=== PATIENT | male | born 1955 | race Caucasian/White ===

== ENCOUNTER → 2017-06-11 | Outpatient (CLI) | payer MEDICARE ==
[2017-06-11 11:14] LABS: CHCM 33.5; HCT 47.9 % (39.0-53.0); HDW 2.83; HGB 15.8 gm/dL (13.0-17.5); MCH 30.7 pg (25.0-35.0); MCV 93.1 fL (80.0-100.0); Mean Platelet Volume 7.5; RBC 5.14 m/uL (4.30-5.90); WBC 3.9 k/uL (3.8-10.6)
[2017-06-11 11:33] LABS: Anion Gap 11 mmol/L; Blood Urea Nitrogen 16 mg/dL (9-20); Carbon Dioxide 22 mmol/L (22-30); Chloride 107 mmol/L (98-107); Non-African American GFR(MDRD) >60 (>60 ml/min/1.73 sqM); Potassium 4.4 mmol/L (3.5-5.1); Sodium 140 mmol/L (137-145)
== END | disposition home or self-care (01) ==
LOC: LABPAT 10:39
PROVIDERS: ATTEND Internal Medicine Cardiovascular Disease
DX: Z01.812 Encounter for preprocedural laboratory examination (principal); R07.9 Chest pain, unspecified
CPT/HCPCS: 36415; 80051; 82565; 84520; 85027

== ENCOUNTER 2017-06-16 07:37 | Day surgery (SDC) | payer MEDICARE ==
[2017-06-11 10:11] VITALS: BMI 29.5
[~2017-06-16 07:37] MED LIST: ALPRAZolam 0.25 MG TAB PO PRN; ALPRAZolam 0.5 MG TAB PO PRN; ASPIRIN 325 MG TAB PO STA; ATORVASTATIN 80 MG TAB PO STA; NITROGLYCERIN SL TABS 0.4 MG TAB SUBLINGUAL PRN; SODIUM CHLORIDE 0.9% 1,000 ML in EMPTY BAG 1 BAG IV ONE
[2017-06-16] MEDS ORDERED: SODIUM CHLORIDE 0.9% 1,000 ML IV ONE (08:03)
[2017-06-16 08:22] LABS: INR 1.1 (<1.2); Prothrombin Time 10.7 sec (9.0-12.0)
[2017-06-16 08:27] VITALS: TEMP 98.1
[2017-06-16] MEDS ORDERED: MIDAZOLAM 2 MG/2 ML VIAL ONE (09:01)
[2017-06-16] MEDS ORDERED: LIDOCAINE 2% INJ 20 MG/ML (20 ML MDV) ONE (09:01)
[2017-06-16] MEDS ORDERED: fentaNYL (PF) 50 MCG/ML 2 ML AMP ONE (09:01)
[2017-06-16] MEDS ORDERED: LIDOCAINE 2% INJ 20 MG/ML SQ ONE (09:25)
[2017-06-16] MEDS ORDERED: MIDAZOLAM 2 MG/2 ML VIAL IV ONE (09:25)
[2017-06-16] MEDS ORDERED: IOHEXOL 350 MG/ML 125ML BOTTLE INJ ONE (09:37)
[2017-06-16] MEDS ORDERED: RX INFO: IV CONTRAST WAS GIVEN 1 EACH MISC MISCELLANE PRN (09:39)
[2017-06-16] MEDS ORDERED: SODIUM CHLORIDE 0.9% 1,000 ML IV SCH (09:45)
--- NOTE | 2017-06-16 10:04 | CC ---
CARDIAC CATHETERIZATION REPORT INDICATION: Chest pain with abnormal stress test. PROCEDURE NOTE: After obtaining informed consent, left heart catheterization and coronary angiogram are performed via the right femoral artery using standard Girish catheters. Patient tolerated the procedure well without any obvious immediate complications. A femoral angiogram was performed. An Angio-Seal was deployed for hemostasis. Total conscious sedation time was 15 minutes. FINDINGS: 1. HEMODYNAMICS: Left ventricular end-diastolic pressure is 12 to 14 mm. There is no significant gradient across the aortic valve. 2. LEFT VENTRICULOGRAM: Left ventriculogram was not performed. 3. ANGIOGRAPHIC DATA:. 4. LEFT MAIN CORONARY ARTERY: Left main coronary artery is a normal-sized vessel and is free of stenosis. It divides into left anterior descending coronary artery, ramus intermedius and circumflex coronary artery. LAD and its branches, circumflex coronary artery and its branches are free of significant stenosis. The ramus intermedius appears normal. 5. Right coronary artery is a large dominant vessel and is free of significant stenosis. CONCLUSION: 1. Normal coronary arteries. 2. Normal left ventricular end-diastolic pressure. Patient's chest discomfort is probably noncardiac in origin and the stress test is a false positive stress test. I reviewed angiographic data with the patient and advised him to resume the Coumadin that he is on for the history of DVT. MMODL / IJN: [id number] /
[2017-06-16 10:21] VITALS: RESP 16
[2017-06-16 14:29] VITALS: BP 123/93; PULSE 56
== END 2017-06-16 14:39 | disposition home or self-care (01) ==
LOC: CATHCVL 07:37
PROVIDERS: ATTEND Internal Medicine Cardiovascular Disease
DX: R07.2 Precordial pain (principal); R94.39 Abnormal result of other cardiovascular function study; I73.9 Peripheral vascular disease, unspecified; Z82.49 Family history of ischemic heart disease and other diseases of the circulatory system; I26.99 Other pulmonary embolism without acute cor pulmonale; Z79.01 Long term (current) use of anticoagulants; Z79.899 Other long term (current) drug therapy
CPT/HCPCS: 93458; 85610; C1760; C1894; C1769; J2001; J2250; Q9967

== ENCOUNTER → 2018-12-07 | Outpatient (CLI) | payer SELFPAY | END | disposition home or self-care (01) | LOC: LABPAT 16:39 | PROVIDERS: ATTEND Surgery | DX: Z01.818 Encounter for other preprocedural examination (principal) | CPT/HCPCS: 36415; 86850; 86900; 86901; 93005 ==

== ENCOUNTER → 2018-12-10 | Outpatient (CLI) | payer BC, MEDICARE ==
--- NOTE | 2018-12-10 19:26 | MR ---
EXAMINATION TYPE: MR lumbar spine wo/w con DATE OF EXAM: 12/10/2018 COMPARISON: None HISTORY: Sciatica / Lumbar fusion TECHNIQUE: Multiplanar, multisequence images of the lumbar spine were acquired utilizing 10 mL intravenous Gadav ist gadolinium contrast. There is extensive artifact due to patient's metallic hardware. Degenerative disc changes are present . There is a spinal curvature. IMPRESSION: Exam is markedly limited. There is postop change, degenerative disc disease, scoliosis.
== END | disposition home or self-care (01) ==
LOC: RADMRIMAIN 15:46
PROVIDERS: ATTEND Family Medicine
DX: M51.16 Intervertebral disc disorders with radiculopathy, lumbar region (principal); M41.86 Other forms of scoliosis, lumbar region; Z98.1 Arthrodesis status
CPT/HCPCS: 82565; 72158; 36415; A9585

== ENCOUNTER 2018-12-15 11:46 | Day surgery (SDC) | payer BC, MEDICARE ==
[2018-12-09 16:54] VITALS: BMI 29.7
[~2018-12-15 11:46] MED LIST changes: -ALPRAZolam 0.25 MG TAB PO PRN; -ALPRAZolam 0.5 MG TAB PO PRN; -ASPIRIN 325 MG TAB PO STA; -ATORVASTATIN 80 MG TAB PO STA; +HEPARIN SODIUM,PORCINE 5,000 UNIT/ML 1 ML VIAL SQ ONE; +HYDROmorphone 0.5 MG/0.5 ML SYRINGE IVP PRN; +LACTATED RINGERS 1,000 ML IV SCH; +LIDOCAINE 1% 20 ML VIAL (10MG/ML) FOR IV START INTRADERMA PRN; -NITROGLYCERIN SL TABS 0.4 MG TAB SUBLINGUAL PRN; -SODIUM CHLORIDE 0.9% 1,000 ML in EMPTY BAG 1 BAG IV ONE; +ceFAZolin IN SWFI 2 GM/20 ML SYRINGE IVP ONE
[2018-12-15] MEDS ORDERED: LACTATED RINGERS 1,000 ML IV ONE ×2 (12:00→13:57)
[2018-12-15] MEDS: ONDANSETRON 4 MG/2 ML VIAL IVP ONE ×2 (12:08→17:09)
[2018-12-15] MEDS ORDERED: DEXAMETHASONE SOD PHOS (MDV) 100 MG/10 ML VIAL IVP ONE (12:09)
--- NOTE | 2018-12-15 12:36 | P.GSHP ---
History of Present Illness H&P Date: 12/15/18 Chief Complaint: Incarcerated ventral hernia This a 63-year-old male who presents today for laparoscopic robotic-assisted repair of incarcerated ventral hernia. Patient developed a tender mass in the supraumbilical position. 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, PE x3-last time 3 yrs ago, chronic back pain History of Any Multi-Drug Resistant Organisms: None Reported Past Surgical History: Back Surgery, Hernia Repair, Orthopedic Surgery Additional Past Surgical History / Comment(s): cynthia ankles and rt knee surgery with hardware, neck fusion, back surgery with 4 titanium rods Past Anesthesia/Blood Transfusion Reactions: Previous Problems w/ Anesthesia, Motion Sickness Additional Past Anesthesia/Blood Transfusion Reaction / Comment(s): had problem once w/difficulty waking up but surgeries since than no problems Smoking Status: Never smoker - Past Family History Father Family Medical History: Cancer Additional Family Medical History / Comment(s): prostate Medications and Allergies Home Medications Medication Instructions Recorded Confirmed Type Apixaban [Eliquis] 2.5 mg PO BID 12/09/18 12/09/18 History Allergies Allergy/AdvReac Type Severity Reaction Status Date / Time No Known Allergies Allergy Verified 12/09/18 16:46 Surgical - Exam Vital Signs Temp Pulse Resp BP Pulse Ox 97.2 F L 84 18 200/92 95 12/15/18 12:00 12/15/18 12:00 12/15/18 12:00 12/15/18 12:00 12/15/18 12:00 - General well developed, well nourished, no distress - Eyes PERRL - ENT normal pinna - Neck no masses - Respiratory normal expansion - Cardiovascular Rhythm: regular - Abdomen Abdomen: soft, non tender (4 cm incarcerated ventral hernia located in the super umbilical position) Assessment and Plan Assessment: Incarcerated ventral hernia. We'll perform laparoscopic robotic-assisted repair.
[2018-12-15] MEDS ORDERED: MIDAZOLAM 2 MG/2 ML VIAL IVP ONE (12:45)
[2018-12-15] MEDS ORDERED: MIDAZOLAM 2 MG/2 ML VIAL ONE (13:02)
[2018-12-15] MEDS ORDERED: fentaNYL (PF) 50 MCG/ML 2 ML AMP ONE (13:02)
[2018-12-15] MEDS ORDERED: LIDOCAINE 2%-EPI 1:100,000 20 ML VIAL ONE (13:02)
[2018-12-15] MEDS ORDERED: PROPOFOL 10 MG/ML 20 ML VIAL IV ONE (13:02)
[2018-12-15] MEDS ORDERED: LIDOCAINE 1% INJ 10MG/ML (20 ML MDV) ONE (13:02)
[2018-12-15] MEDS ORDERED: ROCURONIUM BROMIDE 10 MG/ML 10 ML VIAL IV ONE (13:02)
[2018-12-15] MEDS ORDERED: MORPHINE SULFATE 10 MG/ML SYRINGE ONE (13:02)
[2018-12-15] MEDS ORDERED: ROPIVACAINE 5 MG/ML 30 ML VIAL ONE (13:02)
[2018-12-15] MEDS ORDERED: BUPIVACAIN-EPI 0.5%-1:200,000 30 ML VIAL SQ ONE ×2 (13:21→13:49)
--- NOTE | 2018-12-15 13:36 | P.ONQ ---
Anesthesiology Proc Note - PNB - Peripheral Nerve Block Performed Bilateral Rectus Abdominis Single Time Out Performed: Yes Procedure Start Time: 12:46 Procedure Stop Time: 12:51 Indication: Acute Post-Operative Pain, Requested by physician Sedation Type: Sedate with meaningful contact maintained Preparation: Sterile Prep Position: Supine Needle Size: 50mm (2") Needle Gauge: 21 Technique: Ultrasound (ropi .5% 15cc plus xylo 2% with epi 10cc each side) Blood Aspirated: No Pain Paresthesia on Injection Noted: No Resistance on Injection: Normal Events: Uneventful and Well Tolerated
[2018-12-15 14:15] VITALS: RESP 16; TEMP 97.7
--- NOTE | 2018-12-15 14:26 | P.OP ---
Date of Procedure: 12/15/18 Preoperative Diagnosis: Incarcerated ventral hernia Postoperative Diagnosis: Incarcerated ventral hernia Procedure(s) Performed: Endoscopic robotic-assisted repair of incarcerated ventral hernia Partial omentectomy Anesthesia: JACOB Surgeon: Ashish Alejandre Estimated Blood Loss (ml): 5 Pathology: other (Omentum) Condition: stable Disposition: PACU Description of Procedure: The patient was placed on the operating table in the supine position. He received general anesthesia. His abdomen was prepped and draped usual fashion. Using a 5 mm optical trocar under direct visualization the peritoneal cavity was entered in the left upper quadrant. The abdomen was then insufflated. The laparoscope was placed back into the perineal cavity. Next a 8 mm robotic trocar was placed in the left lower quadrant and a 12 mm robotic trocar was placed in the left lateral position. The original 5 mm trocar was exchanged for a 8 mm robotic trocar. The patient's placed in the left side up position. And the patient was undocked the robot. The ventral hernia was visualized. There was incarcerated omentum within the hernia. This was dissected using the hook cautery. The omentum was excised and sent to pathology. Using hook cautery the peritoneum over the ventral hernia w as excised. The fascial opening was repaired using 0V LOC suture. Next a piece of 11 cm round ventral light ST mesh was placed into the. Cavity and secured with 2 OV lock suture. The patient was undocked the robot. The needles were retrieved. The fascia of the 12 mm trocar site was closed with 0 Ethibond suture. Skin was closed interrupted 3-0 Monocryl suture. Dermabond dressings was applied. Patient top procedure well and was sent to recovery room stable condition.
[2018-12-15 16:28] VITALS: BP 143/98; PULSE 63
== END 2018-12-15 17:38 | disposition home or self-care (01) ==
LOC: OR 11:46
PROVIDERS: ATTEND Surgery
DX: K43.6 Other and unspecified ventral hernia with obstruction, without gangrene (principal); M19.90 Unspecified osteoarthritis, unspecified site; Z86.711 Personal history of pulmonary embolism; D68.2 Hereditary deficiency of other clotting factors; G60.0 Hereditary motor and sensory neuropathy; G89.29 Other chronic pain; M54.9 Dorsalgia, unspecified; Z79.01 Long term (current) use of anticoagulants
CPT/HCPCS: 49653; S2900; 36415; 64488; 86850; 86900; 86901; 88305; 93005

== ENCOUNTER 2018-12-18 21:43 | Inpatient (IN) | payer BC, MEDICARE ==
[2018-12-18] MEDS ORDERED: MORPHINE SULFATE 4 MG/ML SYRINGE IV STA (22:18)
[2018-12-18] MEDS ORDERED: SODIUM CHLORIDE 0.9% 500 ML 500 ML IV STA (22:18)
[2018-12-18] MEDS ORDERED: ONDANSETRON 4 MG/2 ML VIAL IVP STA (22:18)
[2018-12-18 22:52] LABS: Basophils % (A) 1 %; Eosinophils # (A) 0.2 k/uL (0-0.7); Eosinophils % (A) 3 %; HCT 51.5 % (39.0-53.0); HGB 17.4 gm/dL (13.0-17.5); Lymphocytes % (A) 13 %; MCH 30.4 pg (25.0-35.0); MCHC 33.7 g/dL (31.0-37.0); MCV 90.3 fL (80.0-100.0); Monocytes # (A) 0.5 k/uL (0-1.0); Monocytes % (A) 6 %; Neutrophils # (A) 6.1 k/uL (1.3-7.7); Neutrophils % (A) 77 %; Platelet Count 168 k/uL (150-450); RDW 13.4 % (11.5-15.5)
--- NOTE | 2018-12-18 22:57 | ED ---
General Adult HPI - General Source: patient, family, RN notes reviewed Mode of arrival: wheelchair Limitations: no limitations <Ramos May P - Last Filed: 12/18/18 23:41> <Carol Saldivar P - Last Filed: 12/19/18 21:38> - General Chief complaint: Abdominal Pain Stated complaint: Vomiting/abd pain Time Seen by Provider: 12/18/18 22:04 - History of Present Illness Initial comments: 63-year-old male with a past medical history of chronic back pain, Atxgyql-Shjcq-Qmkzf disease, PE presents to the emergency department for a chief complaint of abdominal pain x 1 day. Patient sates the pain is in the middle of his abdomen. Patient states the pain comes and goes, denies pain at this time. Patient does admit to one episode vomiting, admits to intermittent nausea. Patient did undergo a laparoscopic robotic-assisted repair of incarcerated ventral hernia [address] Alejandre and has not produced a bowel movement since that time. Patient denies producing gas. Does state he is burping more than normal. Does admit his abdomen feels more distended than normal. Denies fevers or chills.Patient has no other complaints at this time including shortness of breath, chest pain, headache, or visual changes. (Ramos May) - Related Data Home Medications Medication Instructions Recorded Confirmed Apixaban [Eliquis] 2.5 mg PO BID 12/09/18 12/18/18 Previous Rx's Medication Instructions Recorded Docusate [Colace] 100 mg PO BID #20 capsule 12/15/18 HYDROcodone/APAP 7.5-325MG [[place] 1 tab PO Q6HR PRN 3 Days #10 tab 12/15/18 7.5-325] Allergies Allergy/AdvReac Type Severity Reaction Status Date / Time No Known Allergies Allergy Verified 12/18/18 22:29 Review of Systems ROS Other: All systems not noted in ROS Statement are negative. <Ramos May P - Last Filed: 12/18/18 23:41> ROS Other: All systems not noted in ROS Statement are negative. <Carol Saldivar P - Last Filed: 12/19/18 21:38> ROS Statement: Those systems with pertinent positive or pertinent negative responses have been documented in the HPI. 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, PE x3-last time 3 yrs ago, chronic back pain History of Any Multi-Drug Resistant Organisms: None Reported Past Surgical History: Back Surgery, Hernia Repair, Orthopedic Surgery Additional Past Surgical History / Comment(s): cynthia ankles and rt knee surgery with hardware, neck fusion, back surgery with 4 titanium rods Past Anesthesia/Blood Transfusion Reactions: Previous Problems w/ Anesthesia, Motion Sickness Additional Past Anesthesia/Blood Transfusion Reaction / Comment(s): had problem once w/difficulty waking up but surgeries since than no problems Past Psychological History: No Psychological Hx Reported Smoking Status: Never smoker Past Alcohol Use History: None Reported Past Drug Use History: None Reported - Past Family History Father Family Medical History: Cancer Additional Family Medical History / Comment(s): prostate <Ramos May P - Last Filed: 12/18/18 23:41> - Past Family History Father Family Medical History: Cancer Additional Family Medical History / Comment(s): prostate Mother Family Medical History: Dementia Additional Family Medical History / Comment(s): still alive <Carol Saldivar P - Last Filed: 12/19/18 21:38> General Exam Limitations: no limitations General appearance: alert, in no apparent distress Head exam: Present: atraumatic Eye exam: Present: normal appearance, PERRL, EOMI. Absent: scleral icterus, conjunctival injection, periorbital swelling ENT exam: Present: normal exam, mucous membranes moist Neck exam: Present: normal inspection, full ROM. Absent: tenderness, meningismus, lymphadenopathy Respiratory exam: Present: normal lung sounds bilaterally. Absent: respiratory distress, wheezes, rales, rhonchi, stridor Cardiovascular Exam: Present: regular rate, normal rhythm, normal heart sounds. Absent: systolic murmur, diastolic murmur, rubs, gallop, clicks GI/Abdominal exam: Present: distended, tenderness (mid abdominal tednerness noted), hypoactive bowel sounds Neurological exam: Present: alert, oriented X3, CN II-XII intact Psychiatric exam: Present: normal affect, normal mood <Ramos May P - Last Filed: 12/18/18 23:41> Course Vital Signs 12/18/18 12/18/18 21:45 22:41 Temperature 98.1 F Pulse Rate 94 82 Respiratory 20 16 Rate Blood Pressure 163/115 136/105 O2 Sat by Pulse 96 Oximetry Medical Decision Making - Lab Data Result diagrams: 12/18/18 22:30 12/18/18 22:30 <Ramos May P - Last Filed: 12/18/18 23:41> - Lab Data Result diagrams: 12/18/18 22:30 12/18/18 22:30 <Carol Saldivar - Last Filed: 12/19/18 21:38> - Medical Decision Making 63-year-old male with a past medical history of Iuvcgpf-Ibexa-Wvpxz, PE, chronic back pain presents to the emergency department for abdominal pain postop day 4 from laparoscopic robotic-assisted repair of incarcerated ventral hernia performed by Dr. Alejandre. Patient has not had a bowel movement since that time. States he is not producing gas. Patient is burping more than normal and does have a distended abdomen. Had one episode of vomiting earlier today, denies nausea at this time. KUB is read as no acute findings however there is a large amount of gas and stool noted in the colon, consistent with ileus. Dr. Saldivar discussed this with Dr. Paul who is on-call for Dr. Alejandre at this time. Patient will be admitted for further management. (Ramos May) I personally saw and examined the patient. I reviewed and agree with the mid- level provider findings including all diagnostic interpretations and treatment plans as written unless otherwise stated. I discussed patient care with Dr. Putnam who is covering for Dr. Alejandre he agrees with plan for admission, IV fluid hydration and observation (Carol Saldivar) - Lab Data Lab Results 12/18/18 12/18/18 12/18/18 Range/Units 22:30 22:30 22:30 WBC 8.0 (3.8-10.6) k/uL RBC 5.70 (4.30-5.90) m/uL Hgb 17.4 (13.0-17.5) gm/dL Hct 51.5 (39.0-53.0) % MCV 90.3 (80.0-100.0) fL MCH 30.4 (25.0-35.0) pg MCHC 33.7 (31.0-37.0) g/dL RDW 13.4 (11.5-15.5) % Plt Count 168 (150-450) k/uL Neutrophils % 77 % Lymphocytes % 13 % Monocytes % 6 % Eosinophils % 3 % Basophils % 1 % Neutrophils # 6.1 (1.3-7.7) k/uL Lymphocytes # 1.0 (1.0-4.8) k/uL Monocytes # 0.5 (0-1.0) k/uL Eosinophils # 0.2 (0-0.7) k/uL Basophils # 0.0 (0-0.2) k/uL Sodium 137 (137-145) mmol/L Potassium 4.1 (3.5-5.1) mmol/L Chloride 102 (98-107) mmol/L Carbon Dioxide 25 (22-30) mmol/L Anion Gap 10 mmol/L BUN 15 (9-20) mg/dL Creatinine 0.53 L (0.66-1.25) mg/dL Est GFR (CKD-EPI)AfAm >90 (>60 ml/min/1.73 sqM) Est GFR (CKD-EPI)NonAf >90 (>60 ml/min/1.73 sqM) Glucose 115 H (74-99) mg/dL Plasma Lactic Acid Hai 1.3 (0.7-2.0) mmol/L Calcium 9.5 (8.4-10.2) mg/dL Total Bilirubin 0.9 (0.2-1.3) mg/dL AST 22 (17-59) U/L ALT 29 (21-72) U/L Alkaline Phosphatase 78 (38-126) U/L Total Protein 7.2 (6.3-8.2) g/dL Albumin 4.0 (3.5-5.0) g/dL Amylase 67 (30-110) U/L Lipase 63 (23-300) U/L Disposition Is patient prescribed a controlled substance at d/c from ED?: No Time of Disposition: 23:41 <Ramos May P - Last Filed: 12/18/18 23:41> <Carol Saldivar P - Last Filed: 12/19/18 21:38> Clinical Impression: Postoperative ileus Disposition: ADMITTED IP TO THIS HOSP Condition: Fair
--- NOTE | 2018-12-18 23:05 | XR ---
EXAM: XR Abdomen, 1 View CLINICAL HISTORY: ITS.REASON XR Reason: Pain TECHNIQUE: Frontal supine view of the abdomen/pelvis. COMPARISON: No relevant prior studies available. FINDINGS: Gastrointestinal tract: Large amount of gas and stool in the colon. Bones/joints: Unremarkable. IMPRESSION: No acute findings.
[2018-12-18 23:08] LABS: ALT 29 U/L (21-72); AST 22 U/L (17-59); Alkaline Phosphatase 78 U/L (38-126); Amylase 67 U/L (30-110); Anion Gap 10 mmol/L; Blood Urea Nitrogen 15 mg/dL (9-20); Calcium 9.5 mg/dL (8.4-10.2); Carbon Dioxide 25 mmol/L (22-30); Chloride 102 mmol/L (98-107); Glucose 115 mg/dL (74-99); Lipase 63 U/L (23-300); Potassium 4.1 mmol/L (3.5-5.1); Sodium 137 mmol/L (137-145); Total Bilirubin 0.9 mg/dL (0.2-1.3); Total Protein 7.2 g/dL (6.3-8.2)
[2018-12-18] MEDS ORDERED: NALOXONE 0.4 MG/ML 1 ML VIAL IV PRN (23:16)
[2018-12-18] MEDS: SODIUM CHLORIDE 0.9% 1,000 ML IV SCH (23:42)
[2018-12-19] MEDS ORDERED: ONDANSETRON 4 MG/2 ML VIAL IVP PRN (00:24)
[2018-12-19 02:48] LABS: Appearance,Urine Clear (Clear); Bilirubin,Urine Negative (Negative); Blood,Urine Negative (Negative); Color,Urine Yellow; Glucose,Urine (UA) Negative (Negative); Ketones,Urine Negative (Negative); Leukocyte Esterase,Urine Negative (Negative); Nitrite,Urine Negative (Negative); PH, Urine 6.5 (5.0-8.0); Protein,Urine Negative (Negative); Specific Gravity,Urine 1.012 (1.001-1.035); Urobilinogen,Urine <2.0 mg/dL (<2.0)
[2018-12-19] MEDS: SODIUM CHLORIDE 0.9% 1,000 ML IV SCH ×3 (09:48→23:30)
[2018-12-19] MEDS ORDERED: MAGNESIUM HYDROXIDE 2,400 MG/10 ML CUP PO PRN (10:17)
[2018-12-19] MEDS ORDERED: HYDROcodone/APAP 5-325MG 1 EACH TAB PO PRN (10:21)
--- NOTE | 2018-12-19 10:21 | P.GSHP ---
History of Present Illness H&P Date: 12/19/18 Chief Complaint: Postoperative ileus Patient underwent laparoscopic repair of an umbilical hernia the other day. He was sent home with stool softeners. The patient states at home he was having decreased bowel function and eventual episodes of nausea and vomiting. Came to the hospital for evaluation last night. Feels somewhat better this morning. Last bowel movement 3 days ago. He is passing flatus. Labs look good. Abdominal x-rays show some distended small bowel loops suspicious for ileus. 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, PE x3-last time 3 yrs ago, chronic back pain History of Any Multi-Drug Resistant Organisms: None Reported Past Surgical History: Back Surgery, Hernia Repair, Orthopedic Surgery Additional Past Surgical History / Comment(s): cynthia ankles and rt knee surgery with hardware, neck fusion, back surgery with 4 titanium rods, hernia repair 12/15/18 Past Anesthesia/Blood Transfusion Reactions: Previous Problems w/ Anesthesia, Motion Sickness Additional Past Anesthesia/Blood Transfusion Reaction / Comment(s): had problem once w/difficulty waking up but surgeries since than no problems Past Psychological History: No Psychological Hx Reported Smoking Status: Never smoker Past Alcohol Use History: None Reported Past Drug Use History: None Reported - Past Family History Father Family Medical History: Cancer Additional Family Medical History / Comment(s): prostate Mother Family Medical History: Dementia Additional Family Medical History / Comment(s): still alive Medications and Allergies Home Medications Medication Instructions Recorded Confirmed Type Apixaban [Eliquis] 2.5 mg PO BID 12/09/18 12/18/18 History Docusate [Colace] 100 mg PO BID #20 capsule 12/15/18 12/18/18 Rx HYDROcodone/APAP 7.5-325MG [[place] 1 tab PO Q6HR PRN 3 Days #10 tab 12/15/18 12/18/18 Rx 7.5-325] Allergies Allergy/AdvReac Type Severity Reaction Status Date / Time No Known Allergies Allergy Verified 12/18/18 22:29 Surgical - Exam Vital Signs Temp Pulse Resp BP Pulse Ox 98.1 F 94 20 163/115 96 12/18/18 21:45 12/18/18 21:45 12/18/18 21:45 12/18/18 21:45 12/18/18 21:45 Physical exam: General: Well-developed, well-nourished HEENT: Normocephalic, sclerae nonicteric Abdomen: Mild distention, minimal tenderness, incisions clean and dry Extremities: No edema Neuro: Alert and oriented Results - Labs 12/18/18 22:30 12/18/18 22:30 Abnormal Lab Results - Last 24 Hours (Table) 12/18/18 Range/Units 22:30 Creatinine 0.53 L (0.66-1.25) mg/dL Glucose 115 H (74-99) mg/dL Diabetes panel 12/18/18 Range/Units 22:30 Sodium 137 (137-145) mmol/L Potassium 4.1 (3.5-5.1) mmol/L Chloride 102 (98-107) mmol/L Carbon Dioxide 25 (22-30) mmol/L BUN 15 (9-20) mg/dL Creatinine 0.53 L (0.66-1.25) mg/dL Glucose 115 H (74-99) mg/dL Calcium 9.5 (8.4-10.2) mg/dL AST 22 (17-59) U/L ALT 29 (21-72) U/L Alkaline Phosphatase 78 (38-126) U/L Total Protein 7.2 (6.3-8.2) g/dL Albumin 4.0 (3.5-5.0) g/dL Calcium panel 12/18/18 Range/Units 22:30 Calcium 9.5 (8.4-10.2) mg/dL Albumin 4.0 (3.5-5.0) g/dL Pituitary panel 12/18/18 Range/Units 22:30 Sodium 137 (137-145) mmol/L Potassium 4.1 (3.5-5.1) mmol/L Chloride 102 (98-107) mmol/L Carbon Dioxide 25 (22-30) mmol/L BUN 15 (9-20) mg/dL Creatinine 0.53 L (0.66-1.25) mg/dL Glucose 115 H (74-99) mg/dL Calcium 9.5 (8.4-10.2) mg/dL Adrenal panel 12/18/18 Range/Units 22:30 Sodium 137 (137-145) mmol/L Potassium 4.1 (3.5-5.1) mmol/L Chloride 102 (98-107) mmol/L Carbon Dioxide 25 (22-30) mmol/L BUN 15 (9-20) mg/dL Creatinine 0.53 L (0.66-1.25) mg/dL Glucose 115 H (74-99) mg/dL Calcium 9.5 (8.4-10.2) mg/dL Total Bilirubin 0.9 (0.2-1.3) mg/dL AST 22 (17-59) U/L ALT 29 (21-72) U/L Alkaline Phosphatase 78 (38-126) U/L Total Protein 7.2 (6.3-8.2) g/dL Albumin 4.0 (3.5-5.0) g/dL Assessment and Plan (1) Postoperative ileus Narrative/Plan: Will check repeat abdominal x-rays today. Begin liquid diet. Possible discharge later today. Current Visit: Yes Status: Acute Code(s): K91.89 - OTH POSTPROCEDURAL COMPLICATIONS AND DISORDERS OF DGSTV SYS; K56.7 - ILEUS, UNSPECIFIED SNOMED Code(s): 157196068
[2018-12-19] MEDS: HEPARIN SODIUM,PORCINE 5,000 UNIT/ML 1 ML VIAL SQ SCH (11:21)
--- NOTE | 2018-12-19 13:08 | XR ---
EXAMINATION TYPE: XR abdomen 2V , 3 VIEWS DATE OF EXAM ORDERED: 12/19/2018 HISTORY: Ileus. COMPARISON: Previous study dated 12/18/2018. FINDINGS: The lung bases are clear. Within the abdomen. There is been an interpedicular fusion extending from L3 S1 with an associated la minectomy. There is a concomitant dextroscoliosis. There continues to be gaseous distention of the colon. No free air is seen. No unusual calcifications are seen. IMPRESSION: NO SIGNIFICANT INTERVAL CHANGE IN THE AMOUNT OF GASEOUS DISTENTION OF THE COLON.
[2018-12-20] MEDS: HEPARIN SODIUM,PORCINE 5,000 UNIT/ML 1 ML VIAL SQ SCH ×4 (00:37→23:55)
[2018-12-20] MEDS: SODIUM CHLORIDE 0.9% 1,000 ML IV SCH ×3 (09:02→23:57)
[2018-12-20] MEDS: METOCLOPRAMIDE 5 MG/ML 2 ML VIAL IVP SCH ×3 (09:02→17:34)
--- NOTE | 2018-12-20 10:46 | P.PN ---
<ParnellGisselle Jerod - Last Filed: 12/20/18 10:46> Subjective Progress Note Date: 12/20/18 CHIEF COMPLAINT: Nausea vomiting HISTORY OF PRESENT ILLNESS: Patient examined at the bedside. Patient denies abdominal pain. He reports passing flatus this morning. Denies BM. Reports his last bowel movement was Thursday12/15/2018. Reports his abdominal bloating is improved from yesterday. PHYSICAL EXAM: VITAL SIGNS: Reviewed. GENERAL: Well-developed in no acute distress. HEENT: No sclera icterus. Extraocular movements grossly intact. Moist buccal mucosa. Head is atraumatic, normocephalic. ABDOMEN: Soft. Mildly distended. Nontender. Hypoactive bowel sounds. NEUROLOGIC: Alert and oriented. Cranial nerves II through XII grossly intact. ASSESSMENT: 1. Postoperative ileus PLAN: Patient reports passing small amounts of flatus this morning but no bowel movement. His bowel sounds remain very hypoactive. We will continue clear liquid diet at this time. begin Reglan 10mg IV q6 hours. Nurse practitioner note has been reviewed by physician. Signing provider agrees with the documented findings, assessment, and plan of care. Objective - Vital Signs Vital signs: Vital Signs Temp 97.7 F 12/20/18 07:00 Pulse 86 12/20/18 07:00 Resp 16 12/20/18 07:00 BP 134/88 12/20/18 07:00 Pulse Ox 95 12/20/18 07:00 Intake & Output 12/19/18 12/20/18 12/20/18 18:59 06:59 18:59 Intake Total 250 Balance 250 Intake: Oral 250 Other: # Voids 1 1 - Labs CBC & Chem 7: 12/18/18 22:30 12/18/18 22:30 Labs: Microbiology - Last 24 Hours (Table) 12/18/18 22:30 Blood Culture - Preliminary Blood No Growth after 24 hours <Dutch Putnam - Last Filed: 12/20/18 17:17> Subjective Patient doing well today. He is passing flatus. Small bowel bowel movement. He is hungry at this time. No significant pain. Will advance diet. Anticipate discharge tomorrow if tolerating diet. Objective - Vital Signs Vital signs: Vital Signs Temp 97.5 F L 12/20/18 15:00 Pulse 84 12/20/18 15:00 Resp 16 12/20/18 15:00 BP 137/86 12/20/18 15:00 Pulse Ox 96 12/20/18 15:00 Intake & Output 12/19/18 12/20/18 12/20/18 18:59 06:59 18:59 Intake Total 250 Balance 250 Intake: Oral 250 Other: # Voids 1 1 1 # Bowel Movements 1 - Labs CBC & Chem 7: 12/18/18 22:30 12/18/18 22:30 Labs: Microbiology - Last 24 Hours (Table) 12/18/18 22:30 Blood Culture - Preliminary Blood No Growth after 24 hours Assessment and Plan (1) Postoperative ileus Current Visit: Yes Status: Acute Code(s): K91.89 - OTH POSTPROCEDURAL COMPLICATIONS AND DISORDERS OF DGSTV SYS; K56.7 - ILEUS, UNSPECIFIED SNOMED Code(s): 389086952
[2018-12-20] MEDS ORDERED: BISACODYL 10 MG SUPP RECTAL STA (11:53)
[2018-12-21] MEDS: METOCLOPRAMIDE 5 MG/ML 2 ML VIAL IVP SCH ×3 (00:31→12:05)
[2018-12-21] MEDS: HEPARIN SODIUM,PORCINE 5,000 UNIT/ML 1 ML VIAL SQ SCH (07:08)
[2018-12-21] MEDS: SODIUM CHLORIDE 0.9% 1,000 ML IV SCH ×2 (07:08→15:35)
[2018-12-21 07:35] VITALS: PULSE 72; RESP 16; TEMP 97.9
[2018-12-21 07:36] VITALS: BP 132/87
--- NOTE | 2018-12-21 10:50 | P.DS ---
<SoheilaGisselle Jerod - Last Filed: 12/21/18 10:49> Providers Expected date of discharge: 12/21/18 Hospital Course: 63-year-old male with a recent umbilical hernia repair who presented to the emergency room with abdominal pain and nausea vomiting. Patient was found to have postoperative ileus. Patient was started on Reglan and Dulcolax suppository. Patient has since had a bowel movement. Denies further episodes of abdominal pain or vomiting. He is stable for discharge home today. Please see EMR for further hospital course details. Discharge diagnosis: 1. Postoperative ileus Nurse practitioner note has been reviewed by physician. Signing provider agrees with the documented findings, assessment, and plan of care. Patient Condition at Discharge: Stable Plan - Discharge Summary Discharge Rx Participant: Yes New Discharge Prescriptions: No Action Apixaban [Eliquis] 2.5 mg PO BID Docusate [Colace] 100 mg PO BID #20 capsule HYDROcodone/APAP 7.5-325MG [[place] 7.5-325] 1 tab PO Q6HR PRN 3 Days #10 tab PRN Reason: Pain Discharge Medication List Apixaban [Eliquis] 2.5 mg PO BID 12/09/18 [History] Docusate [Colace] 100 mg PO BID #20 capsule 12/15/18 [Rx] HYDROcodone/APAP 7.5-325MG [[place] 7.5-325] 1 tab PO Q6HR PRN 3 Days #10 tab 12/15/18 [Rx] Follow up Appointment(s)/Referral(s): Nati Steen DO [Primary Care Provider] - 12/23/18 10:00 am Ashish Alejandre MD [STAFF PHYSICIAN] - 12/24/18 1:20 pm Patient Instructions/Handouts: Ileus (DC) Discharge Disposition: HOME SELF-CARE <Dutch Putnam - Last Filed: 12/21/18 18:00> Providers Date of admission: 12/20/18 15:41 Attending physician: Dutch Putnam Primary care physician: Nati Steen - Discharge Diagnosis(es) (1) Postoperative ileus Status: Acute Hospital Course: As above. Patient was discharged earlier today prior to me evaluating the patient. Outpatient follow-up with Dr. Alejandre advise.
== END 2018-12-21 15:34 | disposition home or self-care (01) | DRG 394 ==
LOC: EC 21:43 → 4SSUR 23:17 → OBSVTOIN 12-20 15:41
PROVIDERS: ADMIT Surgery; ATTEND Surgery
DX: K91.89 Other postprocedural complications and disorders of digestive system (principal); K56.7 Ileus, unspecified; Y83.8 Other surgical procedures as the cause of abnormal reaction of the patient, or of later complication, without mention of misadventure at the time of the procedure; Z79.01 Long term (current) use of anticoagulants; Z86.711 Personal history of pulmonary embolism; Z98.1 Arthrodesis status; G89.29 Other chronic pain; M54.9 Dorsalgia, unspecified; Z80.42 Family history of malignant neoplasm of prostate; G60.0 Hereditary motor and sensory neuropathy; Z98.890 Other specified postprocedural states; Z82.0 Family history of epilepsy and other diseases of the nervous system
CPT/HCPCS: 36415; 74018; 74019; 80053; 81003; 82150; 83605; 83690; 85025; 87040; 96361; 96374; 96375; 99285

== ENCOUNTER → 2019-05-30 | Outpatient (CLI) | payer BC, MEDICARE ==
--- NOTE | 2019-05-30 21:11 | MR ---
EXAMINATION TYPE: MR cspine/tspine wo/w con DATE OF EXAM: 05/30/2019 COMPARISON: None HISTORY: Neck/mid back pain, BUE weakness/tingling, prior surgery TECHNIQUE: Multiplanar, multisequence images of the lumbar spine is performed without and with IV contrast, util izing 10 mL intravenous Gadavist FINDINGS: There is previous anterior fusion surgery at C4-5 C5-6 C6-7. Cervical spinal cord has normal signal p attern. Cervical vertebra have normal alignment. There is no cervical bony spinal stenosis. There is narrowing and spur formation at C7-T1. There is no cervical paraspinal mass. There is minimal posterior disc bulging at C7-T1 and T1-T2 without spinal stenosis. Thoracic vertebra have fairly normal alignment on the sagittal images. There is mild narrowing of tho racic disc spaces. There is no thoracic compression fracture. I see no pathologic cervical or thoraci c enhancement. Thoracic spinal cord has normal signal pattern. There is no edema. There is no thoraci c spinal stenosis. There is mild thoracic dextroscoliosis. I see no focal bone destruction. There are patchy areas of increased signal on the T2 and T1 images in the thoracic vertebra consistent with he mangioma and degenerative phenomenon. IMPRESSION: Multilevel cervical spine fusion surgery. No cervical or thoracic spinal stenosis. No evidence of mye lomalacia. No fracture.
== END | disposition home or self-care (01) ==
LOC: RADMRIMAIN 17:58
PROVIDERS: ATTEND Family Medicine
DX: M47.24 Other spondylosis with radiculopathy, thoracic region (principal); M47.14 Other spondylosis with myelopathy, thoracic region; Z98.1 Arthrodesis status
CPT/HCPCS: 72156; 72157; A9585

== ENCOUNTER → 2019-05-31 | Outpatient (CLI) | payer BC, MEDICARE ==
--- NOTE | 2019-05-31 21:09 | CONS ---
CONSULTATION REASON FOR CONSULTATION: This is a consultation note for sleep apnea. This is a 64-year-old male patient with known history of Charcot-Holli Tooth of a familial type. In addition to previous history of a traumatic neck and back injury that was occupational in nature that occurred back in 1981 and the patient has been quite debilitated requiring multiple neck and back surgeries and orthopedic surgeries and today the patient has difficulty with mobility and gait. As for his Charcot-Holli- Tooth syndrome, the patient has developed progressive worsening in his peripheral neuropathy and muscle weakness and he has obvious muscle atrophy in both upper and lower extremities with generalized neuromuscular weakness and difficulties with mobility and gait. For now, the patient is coming in for a sleep apnea evaluation. He tells me that he was quite obese. He was at one point weighing around 225 pounds. He was able to drop his weight down to 180 with diet and currently is back down to 237. He snores and his has noted that he quits breathing at night. He goes to bed around 10 p.m., wakes up 4-5 a.m. in the morning. He is very much tired and sleepy during the day. He can be easily take naps. He can fall easily to sleep. He is having issues with memory and concentration. He is a mouth breather and he wakes up with dry mouth in the morning. No sleep paralysis. No hallucinations. No cataplexy. No substance abuse. His hypersomnia is recent and is not related to any traumatic brain injury type of picture. PAST MEDICAL HISTORY: 1. Qqzrveu-Qpgfs-Nofxm syndrome. 2. Chronic pain. 3. Factor V Leiden. 4. Pulmonary embolism, maintain a lifelong anticoagulation with Eliquis. 5. Traumatic neck and back injury occupation in nature back in 1981. PAST SURGICAL HISTORY: Includes umbilical hernia surgery, foot surgery, knee surgery, back surgery, neck surgery, and spine surgery that involved multilevel fusion. DRUG ALLERGIES: Not known. OUTPATIENT MEDICATION: Includes Eliquis 2.5 mg p.o. b.i.d. SOCIAL HISTORY: Nonsmoker. No history of alcohol. No history of IV drugs. FAMILY HISTORY: Mother had Alzheimer's disease. Father had prostate cancer and sleep apnea. Two of his children have Oyflasi-Rjale-Lulnp and another grand kid has Ytncflx-Apmio-Lnexp. REVIEW OF SYSTEMS: Fourteen-point review of system was done. Positive findings are mentioned above in history of present illness. Of significance is the difficulties with maneuvering and mobility and gait due to this neuromuscular disorder. The patient is quite somnolent and sleepy and he is having excessive fatigue and tiredness and sleepiness. No history of any motor vehicle accidents because of feeling drowsy or sleepy. No history of any seizure activity. No nighttime episodes of waking up with seizures or any unusual behavior. Denies nocturia. No grinding of the teeth. No sleepwalking or sleep talking. No symptoms of any restless leg syndrome. 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 No recurrent falls for now. PHYSICAL EXAMINATION: BP is 134/96, pulse 88, respirations 16, temp 97.6, saturation 95% on room air. Height is 5 feet 10 inches, weight is 237, and BMI 34.0. General appearance: Calm, comfortable. No acute distress. HEAD is atraumatic, normocephalic. NECK: Supple. Mallampati class IV. There is no goiter or neck masses. Lungs diminished, otherwise clear. HEART: Sounds are regular rate and rhythm. Normal S1, S2. No S3. No murmurs. ABDOMEN: Soft, nontender. No organomegaly. EXTREMITIES: No edema. No cyanosis or clubbing. NEUROLOGIC EXAM: The patient is awake and alert x3. There is obvious muscle atrophy throughout his upper and lower extremities. In addition to loss in coordination and sense of touch and he has difficulties with gait and mobility with a wide-based gait. Motor power in the lower extremities are +4/5. Motor function upper extremities +4/5. IMPRESSION: 1. Chronic hypersomnia with high likelihood of obstructive sleep apnea. The patient has snoring and witnessed apneas with Mallampati class 4. He needs further investigation and screening polysomnogram is requested. 2. Qrrqnek-Yljul-Yyndy which is a hereditary motor and sensory neuropathy inherited situation causing progressive loss and muscle tissue and sensation across various parts of his body especially in the upper and lower extremities. 3. Traumatic neck and back injury. 4. Chronic pain. 5. History of pulmonary embolism in a hypercoagulable state. Specifically Factor V Leiden maintained on long-term anticoagulation with Eliquis. PLAN: The patient will need further investigation. I am recommending a polysomnogram. This will be an in-lab polysomnogram. The patient is unable to do a home sleep study because of his underlying neurologic impairment which include Myfrzzu-Cakuc-Pchoy which has caused significant loss in muscle mass and bulk and strength in addition to loss of dexterity in using his arms. As such, I am considering that the patient is going to have a very hard time undergoing a type 3 sleep study. In lab study will be needed and it will be a good opportunity to look at his sleep quality to rule out any underlying hypoventilation that may occur at night time related to his neuromuscular weakness in addition to ruling out the possibility of obstructive sleep apnea. An in-lab sleep study will be needed for this patient. Encourage weight loss. Optimize sleep hygiene measures. Continue treatment of the comorbidities and we will continue to follow and make further recommendations based on his progress. YUE / PAMELA: [id number] /
== END | disposition home or self-care (01) ==
LOC: SLEEP 16:31
PROVIDERS: ATTEND Internal Medicine Critical Care Medicine
DX: R06.83 Snoring (principal); G60.0 Hereditary motor and sensory neuropathy; S19.9XXA Unspecified injury of neck, initial encounter; S39.92XA Unspecified injury of lower back, initial encounter; G89.29 Other chronic pain; Z86.711 Personal history of pulmonary embolism; Z79.01 Long term (current) use of anticoagulants; G62.9 Polyneuropathy, unspecified; M62.81 Muscle weakness (generalized); M62.50 Muscle wasting and atrophy, not elsewhere classified, unspecified site
CPT/HCPCS: 99211

== ENCOUNTER → 2019-10-18 | Outpatient (CLI) | payer BC, MEDICARE ==
--- NOTE | 2019-10-18 22:35 | PN ---
PROGRESS NOTE DATE OF SERVICE: 10/18/2019 This is a very pleasant 64-year-old gentleman who follows with Dr. Cruz for symptomatic sleep apnea, predominantly obstructive with some mild mixed central events. He had undergone a successful BiPAP titration. He was placed on 12/8 cm of water with a Bi-Flex of 3. He was given a medium-size simplest fullface mask. He is here today for a compliance evaluation. The patient states he was out of town for 1 week since having the device. Otherwise, he is wearing it nightly. His compliance reveals 20 out of 30 days utilized with 19 out of those 30 days at greater than 4 hours per night. He is averaging 6.3 hours. There is a leak of 5 L/minute. He does have an AHI of 20.4 with a total AHI of 18.1 and central AI 10.3. Events per hour were 28.7. The patient states he is tolerating it well and denies any significant issues. He states he does on occasion wake up with the mask off to the side of his face and that the straps have been hurting his ears and he has been making adjustments accordingly. He feels last week or so he has been doing better as far as compliance. PHYSICAL EXAM: This is a pleasant 64-year-old gentleman in no acute distress. Vital signs revealed blood pressure 122/79, heart rate 76, respirations 16, temperature is 97.6. He is 96% O2 saturation on room air. His Sullivan Sleepiness Scale score is 2. His weight is 241 pounds. HEAD: Normocephalic, sclerae anicteric. There is crowding in the posterior pharynx. His neck is short, supple. Trachea midline. His lungs are clear anterior and posteriorly. Heart rate is regular S1, S2. ABDOMEN: Soft, nontender. Bowel sounds are present. There is no significant peripheral edema. Peripheral pulses are intact. MEDICATIONS: Medications are reviewed. IMPRESSION: 1. Symptomatic sleep apnea, predominantly obstructive with some mild mixed central events and the patient is currently on BiPAP 12/8 cm water with a Bi-Flex of 3. 2. Sleep fragmentation improved with BiPAP. 3. Mild nocturnal oxygen desaturation, improved with BiPAP. 4. Chronic hypersomnia. 5. Charcot Holli tooth syndrome. 6. Chronic back and neck pain. 7. History of hypocoagulability with Factor 5 Leiden deficiency and previous history of pulmonary embolism, maintained on Eliquis in the outpatient setting. PLAN: The patient's case was reviewed and discussed with Dr. Cruz. Further adjustments will be made to the BiPAP device. AHI remains at 20.4. Further adjustments to his mask and straps were made. The patient will let us know if there are any further issues. He is encouraged to call. Otherwise, he will follow up with Dr. Cruz as scheduled. I, the cosigning physician, performed a history and physical examination on the patient. Lung sounds are clear. Maintain O2 saturations in the 90s on room air. I discussed the assessment and plan of care with my nurse practitioner, Le Peter. I attest to the above note as dictated by her. MMODL / IJN: [id number] /
== END | disposition home or self-care (01) ==
LOC: SLEEP 15:37
PROVIDERS: ATTEND Internal Medicine Critical Care Medicine
DX: G47.33 Obstructive sleep apnea (adult) (pediatric) (principal); G60.0 Hereditary motor and sensory neuropathy; M54.2 Cervicalgia; Z83.2 Family history of diseases of the blood and blood-forming organs and certain disorders involving the immune mechanism; Z99.89 Dependence on other enabling machines and devices

== ENCOUNTER → 2021-07-08 | Outpatient (CLI) | payer BC, MEDICARE ==
[~2021-07-08] MED LIST changes: -HEPARIN SODIUM,PORCINE 5,000 UNIT/ML 1 ML VIAL SQ ONE; -HYDROmorphone 0.5 MG/0.5 ML SYRINGE IVP PRN; -LACTATED RINGERS 1,000 ML IV SCH; -LIDOCAINE 1% 20 ML VIAL (10MG/ML) FOR IV START INTRADERMA PRN; +REGADENOSON 0.4 MG/5 ML SYRINGE IV PRN; -ceFAZolin IN SWFI 2 GM/20 ML SYRINGE IVP ONE
--- NOTE | 2021-07-08 13:07 | NM ---
EXAMINATION TYPE: NM stress lexiscan cardiolite DATE OF EXAM: 07/08/2021 COMPARISON: NONE HISTORY: Angina TECHNIQUE: After the intravenous administration of 9.8 mCi Tc 99m Sestamibi - Cardiolite resting SPE CT images acquired 45 minutes post injection. The patient received 0.4mg Lexiscan, 25.3 mCi Tc 99m Sestamibi - Stress images obtained [address] injection FINDINGS: Review of stress and rest SPECT images demonstrates no distinct perfusion abnormality. Gated analysi s shows normal wall motion with an estimated left ventricular ejection fraction of 57 %. IMPRESSION: No scintigraphic evidence for reversible ischemia.
--- NOTE | 2021-07-08 14:50 | EST ---
EXERCISE STRESS AGE: 66 SEX: M HT: 6' WT: 250 lbs. PROTOCOL: Lexiscan STAGE: NA DURATION OF EXERCISE: 5 minutes HEART RATE REST: 69 BLOOD PRESSURE REST: 136/91 MAXIMUM HEART RATE ACHIEVED: 107 MAXIMUM BLOOD PRESSURE: 156/96 85% MPHR: 138 100% MPHR: 156 METS: NA INDICATIONS: Chest pain. CLINICAL INFORMATION: STRESS DATA: Heart rate 69, pressure 134/91 mmHg. Baseline EKG showed sinus mechanism. Lexiscan in the amount of 0.4 mg was given over 15 seconds per protocol. Max heart rate was 93 beats per minute. Maximum pressure was 156/96 mmHg. Clinically the patient did not have any symptoms and the EKG did not show any significant ST or T-wave abnormalities concerning for ischemia. CONCLUSION: 1. Nondiagnostic electrocardiogram stress testing in response to Lexiscan. 2. Please follow up on the Cardiolite portion in a separate report. MMODL / IJN: [id number] /
== END | disposition home or self-care (01) ==
LOC: RADNMMAIN 07:59
PROVIDERS: ATTEND Family Medicine
DX: I20.9 Angina pectoris, unspecified (principal)
CPT/HCPCS: 93017; 78452; A9500; J2785

== ENCOUNTER 2022-06-23 13:59 | Day surgery (SDC) | payer BC, MEDICARE ==
[2022-06-20 09:34] VITALS: BMI 37.1
[2022-06-23] MEDS ORDERED: SODIUM CHLORIDE 0.9% 1,000 ML IV ONE (14:01)
[2022-06-23 14:33] LABS: Basophils # (A) 0.1 k/uL (0-0.2); Basophils % (A) 1 %; Eosinophils # (A) 0.2 k/uL (0-0.7); Eosinophils % (A) 3 %; HCT 49.9 % (39.0-53.0); HGB 17.2 gm/dL (13.0-17.5); Lymphocytes # (A) 1.8 k/uL (1.0-4.8); Lymphocytes % (A) 26 %; MCH 31.5 pg (25.0-35.0); MCHC 34.4 g/dL (31.0-37.0); MCV 91.6 fL (80.0-100.0); Mean Platelet Volume 8.2; Monocytes # (A) 0.6 k/uL (0-1.0); Monocytes % (A) 8 %; Neutrophils # (A) 4.2 k/uL (1.3-7.7); Neutrophils % (A) 59 %; Platelet Count 214 k/uL (150-450); RBC 5.44 m/uL (4.30-5.90); RDW 13.5 % (11.5-15.5)
[2022-06-23 14:49] LABS: African American GFR (CKD) >90 (>60 ml/min/1.73 sqM); Anion Gap 10 mmol/L; Blood Urea Nitrogen 14 mg/dL (9-20); Calcium 8.8 mg/dL (8.4-10.2); Carbon Dioxide 26 mmol/L (22-30); Chloride 102 mmol/L (98-107); Glucose 108 mg/dL (74-99); Non-African American GFR(CKD) >90 (>60 ml/min/1.73 sqM); Potassium 4.5 mmol/L (3.5-5.1); Sodium 138 mmol/L (137-145)
[2022-06-23] MEDS ORDERED: MIDAZOLAM 2 MG/2 ML VIAL IV STA (14:52)
[2022-06-23] MEDS ORDERED: MIDAZOLAM 2 MG/2 ML VIAL ONE (17:30)
[2022-06-23] MEDS ORDERED: PROPOFOL 10 MG/ML 20 ML VIAL IV ONE (17:30)
[2022-06-23] MEDS ORDERED: methylPREDNISolone ACETATE 40 MG/ML 1 ML VIAL ONE (17:30)
[2022-06-23] MEDS ORDERED: fentaNYL (PF) 50 MCG/ML 2 ML AMP ONE (17:30)
[2022-06-23] MEDS ORDERED: HYDROmorphone (PF) 1 MG/ML ONE (17:30)
[2022-06-23] MEDS ORDERED: ISOPROTERENOL 250 MCG/1.25 ML SYR IV ONE (17:30)
[2022-06-23] MEDS ORDERED: HEPARIN SOD,PORK IN 0.45% NACL 25,000 UNIT in 0.45% NACL 1 250ML.BAG IV ONE (17:57)
[2022-06-23] MEDS ORDERED: LIDOCAINE 1% INJ 10MG/ML (30 ML VIAL-PF) SQ ONE ×3 (18:00→19:33)
[2022-06-23] MEDS ORDERED: HEPARIN SODIUM (1,000 UNIT/ML) 1,000 UNIT in SODIUM CHLORIDE 0.9% 1,000 ML IRRIGATION ONE (18:44)
[2022-06-23] MEDS ORDERED: IOPAMIDOL-370 50ML BTL INJ ONE ×2 (19:26)
--- NOTE | 2022-06-23 21:03 | P.HPCAR ---
History of Present Illness This is Dr. Goldstein dictating an H/P on this patient The patient was interviewed and examined IMPRESSION / ASSESSMENT: Recurrent palpitations associated with dizziness Documented SVT Episodes continue despite verapamil History of pulmonary embolism and factor 5-lead in deficiency Dilated ascending aorta Borderline diabetes PLAN: EP study possibly efficacy ablation IV heparin through the procedure Stop verapamil thereafter Follow blood pressure and start angiotensin receptor blockers later HPI Patient has recurrent episodes of palpitations associated with dizziness and profuse sweating These episodes continue despite verapamil He has moderate LVH borderline diabetes ascending aorta of 3.8 cm ROS: No fever chills or rigors, no cough, phlegm or expectoration, no nausea, vomiting or diarrhea, no hematuria, dysuria, no musculoskeletal complaints, no strokes or seizures, no skin lesions. EXAMINATION: 125/90 mmHg pulse rate in the 60s afebrile Breath sounds are clear no rhonchi no crackles Normal heart sound or murmur gallop or rub Extended is warm no edema REVIEW OF LABS, ECG & MEDICAL DATA Patient is on ELIQUIS 5 g twice daily for history of pulmonary embolism and factor V Leyden deficiency, spironolactone and verapamil Physical Exam Vitals: Vital Signs Temp Pulse Resp BP Pulse Ox 06/23/22 15:11 68 16 125/90 97 06/23/22 14:22 97.8 F 92 16 175/108 97 Intake and Output 06/23/22 06/23/22 06/23/22 06:59 14:59 22:59 Intake Total 0 Balance 0 Intake: IV 0 Other: Weight 123.9 kg Past Medical History Past Medical History: Blood Disorder, Musculoskeletal Disorder, Osteoarthritis (OA), Pulmonary Embolus (PE) Additional Past Medical History / Comment(s): hx:charcot gabriel tooth disease - wears braces on legs, PE x3-last time 3 yrs ago, chronic back pain, See Dr. Goldstein's H&P. History of Any Multi-Drug Resistant Organisms: None Reported Past Surgical History: Back Surgery, Hernia Repair, Orthopedic Surgery Additional Past Surgical History / Comment(s): cynthia ankles and rt knee surgery with hardware, neck fusion, back surgery with 4 titanium rods, hernia repair 12/15/18, feet surgery. Past Anesthesia/Blood Transfusion Reactions: Previous Problems w/ Anesthesia, Motion Sickness Additional Past Anesthesia/Blood Transfusion Reaction / Comment(s): Difficulty waking up with one of his surgeries. Smoking Status: Never smoker - Past Family History Father Family Medical History: Cancer Additional Family Medical History / Comment(s): prostate Mother Family Medical History: Dementia Additional Family Medical History / Comment(s): still alive Physical Examination Vital Signs Temp Pulse Resp BP Pulse Ox 06/23/22 15:11 68 16 125/90 97 06/23/22 14:22 97.8 F 92 16 175/108 97 Intake and Output 06/23/22 06/23/22 06/23/22 06:59 14:59 22:59 Intake Total 0 Balance 0 Intake: IV 0 Other: Weight 123.9 kg Results 06/23/22 14:20 06/23/22 14:20 CBC 06/23/22 Range/Units 14:20 WBC 7.0 (3.8-10.6) k/uL RBC 5.44 (4.30-5.90) m/uL Hgb 17.2 (13.0-17.5) gm/dL Hct 49.9 (39.0-53.0) % Plt Count 214 (150-450) k/uL Comprehensive Metabolic Panel 06/23/22 Range/Units 14:20 Sodium 138 (137-145) mmol/L Potassium 4.5 (3.5-5.1) mmol/L Chloride 102 (98-107) mmol/L Carbon Dioxide 26 (22-30) mmol/L BUN 14 (9-20) mg/dL Creatinine 0.59 L (0.66-1.25) mg/dL Glucose 108 H (74-99) mg/dL Calcium 8.8 (8.4-10.2) mg/dL Current Medications Generic Name Dose Route Start Last Admin Trade Name Freq PRN Reason Stop Dose Admin Sodium Chloride 1,000 mls @ 20 mls/hr 06/23/22 05:43 Saline 0.9% IV 07/23/22 05:44 .Q24H STEVE Intake and Output 06/23/22 06/23/22 06/23/22 06:59 14:59 22:59 Intake Total 0 Balance 0 Intake: IV 0 Other: Weight 123.9 kg Patient Weight 06/24/22 06:59 Weight 123.9 kg 06/23/22 14:20 06/23/22 14:20
--- NOTE | 2022-06-23 21:04 | P.PRLE ---
RE: Urban Gómez Dear Demetrius Mr. Zhang underwent a diagnostic EP study which showed AV node reentrant tachycardia He underwent successful ablation of slow pathway and the tachycardia was rendered noninducible At this time I will stop verapamil and he should be started on an angiotensin receptor arian since he has borderline diabetes and hypertension with a mildly dilated aortic root at 3.8 cm Thank you for entrusting me with the care of the patient Warm regards Sincerely Toy Goldstein
--- NOTE | 2022-06-23 21:12 | P.EPPROC ---
- EP Procedure Note Electrophysiology Procedure Note: Diagnosis Recurrent palpitations despite verapamil, symptomatic Final diagnosis AV brody reentrant tachycardia, very easily inducible Very difficult coronary sinus access Coronary sinus os was at the level of the His bundle, only posterior to it with a large sick valve guarding the os CS access from the femoral vein was very difficult CS was accessed from the axillary vein. This was also difficult but accompanied successfully Difficult ablation, successful or if site was between 1-1.2 cm away from the His bundle area Finally is ablation was successfully performed without any complications Details Patient was brought to the EP lab in a fasting state. Written informed consent was obtained prior to the procedure. IV heparin was given to the procedure. Patient has a history of pulmonary embolism and factor V Leyden deficiency Venous accesses were obtained from below, bilateral groins Venous sheaths were placed diagnostic catheters placed in the high right atrium and His bundle area RV Robert sinus access from below was very difficult, virtually impossible. Multiple attempts were made but could not be accessed from below It appeared that the coronary sinus was at the level of the His bundle, posterior to it Later venous accesses obtained from the left axillary vein. The sheath was placed and a diagnostic cath was placed in the coronary sinus but after considerable difficulty The Robert sinus was of the level of the His bundle, only posterior to it and guarded by at thick valve at its mouth was made difficult as well as ablation Sinus node and AV node were tested AV brody reentry was very easily inducible with simply stood pacing from the high right atrium VAV response noted. Long PPI, tachycardia consistent with AV brody reentry no Mapping catheter was placed along with the sheath 3-D difference sheaths were used and finally the 120 L, heart span was used Despite that ablation was difficult. This was because of the anatomy of the septum especially around the coronary sinus Finally junctional rhythm was obtained for a few beats at the successful site and a power of 35 W was used GA interval remained stable around 100 5270 ms At the end the tachycardia was rendered noninducible even on high-dose Isuprel This was a difficult procedure on account of the anatomy of the coronary sinus in the septum and the proximity of the slow pathway to the fast There was no AV node block noted during the procedure, no complications noted Successful slow pathway ablation and successful elimination of AV node reentry Plan Stop verapamil Start angiotensin receptor blockers Continue ELIQUIS
[2022-06-23] MEDS ORDERED: ACETAMINOPHEN TAB 325 MG TAB PO PRN (21:13)
[2022-06-23] MEDS ORDERED: ACETAMINOPHEN IV (For NPO) 1,000 MG in EMPTY BAG 1 BAG IVPB ONE (21:13)
[2022-06-23] MEDS ORDERED: RIVAROXABAN 2.5 MG TABLET PO SCH (21:15)
[2022-06-24] MEDS: SODIUM CHLORIDE 0.9% 1,000 ML IV SCH ×2 (00:49→09:04)
--- NOTE | 2022-06-24 08:24 | P.DS ---
Providers Attending physician: Toy Goldstein Primary care physician: [facility] Course: Patient is resting comfortably in bed. No chest discomfort no dizziness lightheadedness Groins of healed well Heart sounds S1 and S2 are normal No murmurs no S3 gallop Lungs are clear to Impression AV brody reentrant tachycardia, very easily inducible Status post successful ablation of the slow pathway Tachycardia was rendered noninducible Plan stop verapamil and start losartan 25 mg by mouth daily follow-up with Dr. garcia a week Discharge home today by 5 PM if he management is stable Plan - Discharge Summary Discharge Rx Participant: Yes New Discharge Prescriptions: New RX: Losartan [Cozaar] 25 mg PO DAILY #90 tab Discontinued Verapamil HCl [Verapamil ER] 185 mg PO DAILY No Action Apixaban [Eliquis] 5 mg PO BID RX: Spironolactone 50 mg PO DAILY Discharge Medication List Apixaban [Eliquis] 5 mg PO BID 12/09/18 [History] RX: Spironolactone 50 mg PO DAILY 06/20/22 [History] RX: Losartan [Cozaar] 25 mg PO DAILY #90 tab 06/24/22 [Rx] Follow up Appointment(s)/Referral(s): Toy Goldstein MD [STAFF PHYSICIAN] - 1 Week Activity/Diet/Wound Care/Special Instructions: Post EP study - Ablation instructions 1. Keep access sites dry for 2 days. 2. No heavy lifting or straining for 2 days. 3. Avoid bending the hips repeatedly for 2 days. 4. You may go up and down stairs slowly Call if the following is noted 1. Bleeding, increasing swelling or pain at the access sites. 2. Increasing chest discomfort, especially upon taking a deep breath. 3. Increasing shortness of breath, at rest or with exertion. 4. Undue cough / phlegm 5. Difficulty or pain while swallowing. 6. Pain or change in color in the extremities. 7. Fever, chills, rigors. 8. Increasing headache or neurologic symptoms. 9. Dizziness, fainting, palpitations Stop verapamil Discharge Disposition: HOME SELF-CARE
[2022-06-24] MEDS: SPIRONOLACTONE 25 MG TAB PO SCH (09:03)
[2022-06-24] MEDS: APIXABAN 5 MG TAB PO SCH ×2 (09:03→20:37)
[2022-06-24] MEDS ORDERED: SODIUM CHLORIDE 0.9% 500 ML 250 ML IV ONE (15:22)
[2022-06-24] MEDS: LOSARTAN 25 MG TAB PO SCH (18:04)
[2022-06-25] MEDS: SODIUM CHLORIDE 0.9% 1,000 ML IV SCH (04:53)
[2022-06-25 07:36] VITALS: BP 94/63; PULSE 88; RESP 16; TEMP 97.8
--- NOTE | 2022-06-25 07:51 | P.DS ---
Providers Attending physician: Toy Goldstein Primary care physician: [facility] Course: Patient is feeling a lot better and stronger He did get up out of bed to chair He still has difficulty walking Yesterday he is unable to get out of bed and felt very weak and could not even walk and therefore discharge was withheld Pulse rate in the 80s, blood pressure 109/70 mmHg Head and neck examination is normal heart sounds are normal groins of healed well Impression AV brody reentrant tachycardia Status post successful ablation Tachycardia rendered noninducible Beta blockers has been discontinued In view of his weakness I will hold losartan He may continue spironolactone from the He is already on anticoagulation for management of pulmonary embolism/DVT Discharge home later today after physical therapy treatment Follow-up with Dr. garcia in 1-2 weeks Follow-up with primary care physician Dr. Steen as scheduled Plan - Discharge Summary Discharge Rx Participant: Yes New Discharge Prescriptions: New RX: Losartan [Cozaar] 25 mg PO DAILY #90 tab Discontinued Verapamil HCl [Verapamil ER] 185 mg PO DAILY No Action Apixaban [Eliquis] 5 mg PO BID RX: Spironolactone 50 mg PO DAILY Discharge Medication List Apixaban [Eliquis] 5 mg PO BID 12/09/18 [History] RX: Spironolactone 50 mg PO DAILY 06/20/22 [History] RX: Losartan [Cozaar] 25 mg PO DAILY #90 tab 06/24/22 [Rx] Follow up Appointment(s)/Referral(s): Toy Goldstein MD [STAFF PHYSICIAN] - 1 Week Activity/Diet/Wound Care/Special Instructions: Post EP study - Ablation instructions 1. Keep access sites dry for 2 days. 2. No heavy lifting or straining for 2 days. 3. Avoid bending the hips repeatedly for 2 days. 4. You may go up and down stairs slowly Call if the following is noted 1. Bleeding, increasing swelling or pain at the access sites. 2. Increasing chest discomfort, especially upon taking a deep breath. 3. Increasing shortness of breath, at rest or with exertion. 4. Undue cough / phlegm 5. Difficulty or pain while swallowing. 6. Pain or change in color in the extremities. 7. Fever, chills, rigors. 8. Increasing headache or neurologic symptoms. 9. Dizziness, fainting, palpitations Stop verapamil Discharge Disposition: HOME SELF-CARE
[2022-06-25] MEDS: APIXABAN 5 MG TAB PO SCH (09:41)
[2022-06-25] MEDS: LOSARTAN 25 MG TAB PO SCH (09:41)
[2022-06-25] MEDS: SPIRONOLACTONE 25 MG TAB PO SCH (09:42)
== END 2022-06-25 09:47 | disposition home or self-care (01) ==
LOC: CATHEP 13:59 → 6NMEDSUR 20:50 → CATHEP 06-25 09:47
PROVIDERS: ATTEND Internal Medicine Clinical Cardiac Electrophysiology
DX: I47.1 Supraventricular tachycardia (principal); I26.99 Other pulmonary embolism without acute cor pulmonale; Z86.711 Personal history of pulmonary embolism; Z79.01 Long term (current) use of anticoagulants
CPT/HCPCS: 97162; 93653; 80048; 85025; C1894; C1769; C1760; C1766; C1730 ×4; C1893; C1732; J2250; J1030; J2001; J3010; J1644 ×2; J1170; J2704; Q9967

== ENCOUNTER 2022-09-19 22:45 | Observation (INO) | payer MEDICARE ==
[2022-09-19] MEDS ORDERED: METOPROLOL TARTRATE 5 MG/5 ML VIAL IVP STA (22:58)
[2022-09-19] MEDS ORDERED: SODIUM CHLORIDE 0.9% 500 ML 500 ML IV STA (22:58)
[2022-09-19] MEDS ORDERED: MORPHINE SULFATE 4 MG/ML SYRINGE IV STA (22:58)
[2022-09-19] MEDS ORDERED: ONDANSETRON 4 MG/2 ML VIAL IVP STA (23:07)
[2022-09-19] MEDS: SODIUM CHLORIDE 0.9% 1,000 ML IV STA (23:09)
--- NOTE | 2022-09-19 23:11 | ED ---
Chest Pain HPI - General Chief Complaint: Chest Pain Stated Complaint: Weakness,Headache Time Seen by Provider: 09/19/22 22:58 Source: patient, RN notes reviewed, old records reviewed Mode of arrival: ambulatory Limitations: no limitations - History of Present Illness Initial Comments: This is a 67-year-old male to the ER for evaluation today. This patient presents today for evaluation of chest pain sudden onset of chest pain just prior to arrival patient does have recent history of cardiac ablation. Patient states this chest pain currently is much worse than prior. He states the pain does appear to go to his back and arm he does have a mild headache. Mild nausea with no active vomiting does feel weak. MD Complaint: chest pain -: minutes(s) Onset: during rest, during exertion Pain Location: left chest Pain Radiation: LUE, back Severity: moderate Severity scale (1-10): 6 Quality: tightness, aching Consistency: constant Improves With: nothing Worsens With: nothing Anginal Symptoms: diaphoresis, dyspnea, sense of impending doom Other Symptoms: palpitations Treatments Prior to Arrival: none - Related Data Home Medications Medication Instructions Recorded Confirmed Apixaban [Eliquis] 5 mg PO BID 12/09/18 06/23/22 Spironolactone 50 mg PO DAILY 06/20/22 06/23/22 Allergies Allergy/AdvReac Type Severity Reaction Status Date / Time No Known Allergies Allergy Verified 09/19/22 22:51 Review of Systems ROS Statement: Those systems with pertinent positive or pertinent negative responses have been documented in the HPI. ROS Other: All systems not noted in ROS Statement are negative. 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 Goldstein's H&P. History of Any Multi-Drug Resistant Organisms: None Reported Past Surgical History: Back Surgery, Hernia Repair, Orthopedic Surgery Additional Past Surgical History / Comment(s): cynthia ankles and rt knee surgery with hardware, neck fusion, back surgery with 4 titanium rods, hernia repair 12/15/18, feet surgery. Past Anesthesia/Blood Transfusion Reactions: Previous Problems w/ Anesthesia, Motion Sickness Additional Past Anesthesia/Blood Transfusion Reaction / Comment(s): Difficulty waking up with one of his surgeries. Past Psychological History: Depression Smoking Status: Never smoker Past Alcohol Use History: None Reported Past Drug Use History: None Reported - Past Family History Father Family Medical History: Cancer Additional Family Medical History / Comment(s): prostate Mother Family Medical History: Dementia Additional Family Medical History / Comment(s): still alive General Exam Limitations: no limitations General appearance: alert, in no apparent distress, anxious Head exam: Present: atraumatic, normocephalic, normal inspection Eye exam: Present: normal appearance, PERRL, EOMI. Absent: scleral icterus, conjunctival injection, periorbital swelling ENT exam: Present: normal exam, mucous membranes moist Neck exam: Present: normal inspection. Absent: tenderness, meningismus, lymphadenopathy Respiratory exam: Present: normal lung sounds bilaterally. Absent: respiratory distress, wheezes, rales, rhonchi, stridor Cardiovascular Exam: Present: normal rhythm, tachycardia, normal heart sounds. Absent: systolic murmur, diastolic murmur, rubs, gallop, clicks GI/Abdominal exam: Present: soft, normal bowel sounds. Absent: distended, tenderness, guarding, rebound, rigid Extremities exam: Present: normal inspection, full ROM, normal capillary refill. Absent: tenderness, pedal edema, joint swelling, calf tenderness Back exam: Present: normal inspection Neurological exam: Present: alert, oriented X3, CN II-XII intact Psychiatric exam: Present: normal affect, normal mood Skin exam: Present: warm, dry, intact, normal color. Absent: rash Course Vital Signs 09/19/22 09/19/22 09/20/22 22:47 23:19 00:08 Temperature 96.2 F L Pulse Rate 127 H 88 90 Respiratory 16 15 18 Rate Blood Pressure 119/83 100/69 113/73 O2 Sat by Pulse 95 96 98 Oximetry - Reevaluation(s) Reevaluation #1: 09/19/22 23:14 Medical record is reviewed Reevaluation #2: 09/19/22 23:58 Symptoms are improved here in the ER heart rate is improved chest pain is improved Reevaluation #3: 09/20/22 00:51 Patient symptoms are significantly improved here in the ER patient informed of results and questions answered Reevaluation #4: 09/19/22 23:14 Differential Chest Pain: Stable Angina, Unstable Angina, STEMI, NSTEMI Aortic Dissection, Pneumothorax, Musculoskeletal, Esophageal Spasm GERD, Cholecystitis, Pancreatitis, Zoster, this is not meant to be an all-inclusive list. Reevaluation #5: 09/19/22 23:15 Was pt. sent in by a medical professional or institution? @ -[by , PA, [employer], urgent care, hospital, or senior living] Did you speak to anyone other than the patient for history? @ -[EMS, parent, family, police, friend?] Did you review nursing and triage notes? @ -[agree or disagree, why?] Were old charts reviewed? @ -[outside hosp., previous admissions, EMS record, old EKG, old radiological studies, urgent care reports/EKGs, senior living records?] Differential Diagnosis? @ -[chest pain, altered mental status abdominal pain women, abdominal pain men, vaginal bleeding, weakness, fever, dyspnea, syncope, headache, dizziness, GI bleed, back pain, seizure] EKG interpreted by me (3pts min.)? @ -[none] X-rays interpreted by me (1pt min.)? @ -[none] CT interpreted by me (1pt min.)? @ -[none] U/S interpreted by me (1pt. min.)? @ -[none] What testing was considered but not performed? (CT, X-rays, U/S, labs)? Why? @ [CT, X-rays, U/S, labs? Why?] What meds were considered but not given? Why? @ -[none] Did you discuss the management of the patient with other professionals? @ -[professionals i.e. , PA, [employer], Lab, RT, Psych Nurse, Safety Engineer Pressure Vessels, Bottom Ironer, Teacher, Telecommunicator, case making machine operator? Give summary] Did you reconcile home meds? @ -[none] Was smoking cessation discussed for >3mins.? @ -[none] Was critical care preformed (if so, how long)? @ -[none] Were there social determinants of health that impacted care today? How? (Homelessness, low income, unemployed, alcoholism, drug addiction, transportation, low edu. Level, literacy, decrease access to med. care, custodial, rehab)? @ -[Homelessness, low income, unemployed, alcoholism, drug addiction, transportation, low edu. Level, literacy, decrease access to med. care, custodial, rehab?] Was there de-escalation of care discussed even if they declined? (Discuss DNR or withdrawal of care, Hospice)? @ -[Discuss DNR or withdrawal of care, Hospice?] What co-morbidities impacted this encounter? (DM, HTN, Smoking, COPD, CAD, Cancer, CVA, Hep., AIDS, mental health diagnosis, sleep apnea, morbid obesity)? @ -[DM, HTN, Smoking, COPD, CAD, Cancer, CVA, Hep., AIDS, mental health diagnosis, sleep apnea, morbid obesity?] Was patient admitted / discharged? @ -[hospital course] Undiagnosed new problem with uncertain prognosis? @ -[none] Drug Therapy requiring intensive monitoring for toxicity (Heparin, Nitro, Insulin, Cardizem)? @ -[none] Were any procedures done? @ -[none] Diagnosis/symptom? @ -[default] Acute, or Chronic, or Acute on Chronic? @ -[default] Uncomplicated (without systemic symptoms) or Complicated (systemic symptoms)? @ -[default] Side effects of treatment? @ -[none] Exacerbation, Progression, or Severe Exacerbation] @ -[no] Poses a threat to life or bodily function? @ -[no] - Consultations Consultation #1: Spoke with [facility] to many physicians regarding admission there agreeable Chest Pain MDM - MDM 67 male to the emergency department today for evaluation. Patient resents today for evaluation regards to chest pain shortness of breath elevated heart rate lightheadedness. Patient has history of arrhythmia and ablation. Patient coming in for chest pain or shortness breath currently. Symptoms resolved here in the ER with pain control and heart rate control. Patient's family much improved will be admitted for cardiac observation Disposition Clinical Impression: Chest pain, Arrhythmia, Tachycardia Disposition: ADMITTED IP TO THIS [facility] Condition: Good Is patient prescribed a controlled substance at d/c from ED?: No Referrals: Nati Steen DO [Primary Care Provider] - 1-2 days Time of Disposition: 00:50
[2022-09-19 23:14] LABS: Basophils % (A) 0 %; Eosinophils # (A) 0.2 k/uL (0-0.7); Eosinophils % (A) 2 %; HGB 16.3 gm/dL (13.0-17.5); Lymphocytes # (A) 0.5 k/uL (1.0-4.8); Lymphocytes % (A) 5 %; MCH 30.4 pg (25.0-35.0); MCHC 33.9 g/dL (31.0-37.0); MCV 89.9 fL (80.0-100.0); Monocytes # (A) 0.3 k/uL (0-1.0); Monocytes % (A) 3 %; Neutrophils # (A) 8.2 k/uL (1.3-7.7); Neutrophils % (A) 88 %; Platelet Count 188 k/uL (150-450); RBC 5.34 m/uL (4.30-5.90); RDW 13.3 % (11.5-15.5); WBC 9.3 k/uL (3.8-10.6)
[2022-09-19 23:26] LABS: ALT 31 U/L (4-49); AST 33 U/L (17-59); African American GFR (CKD) >90 (>60 ml/min/1.73 sqM); Albumin 4.2 g/dL (3.5-5.0); Alkaline Phosphatase 91 U/L (38-126); Anion Gap 11 mmol/L; Blood Urea Nitrogen 15 mg/dL (9-20); Calcium 8.8 mg/dL (8.4-10.2); Carbon Dioxide 22 mmol/L (22-30); Chloride 104 mmol/L (98-107); Glucose 173 mg/dL (74-99); Lipase 75 U/L (23-300); Magnesium 2.1 mg/dL (1.6-2.3); Non-African American GFR(CKD) >90 (>60 ml/min/1.73 sqM); Potassium 4.4 mmol/L (3.5-5.1); Sodium 137 mmol/L (137-145); Total Bilirubin 1.1 mg/dL (0.2-1.3); Total Protein 7.7 g/dL (6.3-8.2)
[2022-09-19 23:33] LABS: Partial Thromboplastin Time 25.3 sec (22.0-30.0); Prothrombin Time 10.4 sec (9.0-12.0)
--- NOTE | 2022-09-19 23:59 | XR ---
EXAMINATION TYPE: XR chest 1V portable DATE OF EXAM: 09/19/2022 COMPARISON: NONE HISTORY: Chest pain TECHNIQUE: Single view FINDINGS: Heart is normal. The lungs are clear of consolidation. There are no hilar masses. Costophre rebekah angles are clear. Bony thorax is intact. There are chest leads. IMPRESSION: No active cardiopulmonary disease. Normal heart. No change.
[2022-09-20] MEDS ORDERED: MORPHINE SULFATE 4 MG/ML SYRINGE IV PRN (00:48)
[2022-09-20] MEDS ORDERED: NALOXONE 0.4 MG/ML 1 ML VIAL IV PRN (00:48)
[2022-09-20] MEDS ORDERED: ONDANSETRON 4 MG/2 ML VIAL IVP PRN (00:48)
[2022-09-20] MEDS: SODIUM CHLORIDE 0.9% 1,000 ML IV STA (00:58)
[2022-09-20] MEDS: SODIUM CHLORIDE 0.9% 1,000 ML IV SCH (02:06)
[2022-09-20] MEDS: APIXABAN 5 MG TAB PO SCH ×2 (10:10→20:37)
--- NOTE | 2022-09-20 11:48 | CONS ---
CONSULTATION CHIEF COMPLAINT: Chest pain. HISTORY OF PRESENT ILLNESS: Urban is a 67-year-old gentleman with history of footdrop, paroxysmal SVT, history of coagulation disorder who presented to hospital with symptoms of chest pain. He describes it as precordial chest discomfort that radiates across the chest and into the axillary area. It is sharp, mild intensity, unrelated to exertion and not associated with diaphoresis. He states that this symptom was similar to but worse in the discomfort that he had prior to undergoing an SVT ablation. The patient had a stress test done in 2020 that was normal and stated subsequently had another stress test that was also normal. At the time of my evaluation, he appears comfortable at rest and is free of symptoms. Three sets of cardiac enzymes are negative. An EKG shows sinus rhythm with nonspecific ST-segment changes. Given the unexplained chest discomfort and the abnormal EKG, I am advising the patient to undergo a dobutamine stress echo. If that is abnormal, they will consider cardiac catheterization on him. PAST MEDICAL HISTORY: Significant for paroxysmal SVT status post ablation and history of hypercoagulable disorder. MEDICATIONS: The patient is on, 1. Eliquis 5 b.i.d. 2. Spironolactone 50 daily. ALLERGIES: No known drug allergies. FAMILY HISTORY: Negative for premature coronary artery disease. SOCIAL HISTORY: Negative for smoking, EtOH abuse, or drug abuse. REVIEW OF SYSTEMS: A review of systems has been performed, pertinence are as documented. PHYSICAL EXAMINATION: GENERAL: Comfortable at rest. VITAL SIGNS: Stable. CHEST: Reveals good air entry bilaterally. HEART: Reveals first and second heart sounds. No gallop, no murmur. ABDOMEN: Soft, nontender. EXTREMITIES: Did not reveal any edema. Peripheral pulses are felt. LABORATORY DATA: Shows a hemoglobin of 16.3, potassium is 4.4, creatinine is 0.5. Troponins are negative. BNP is negative. ASSESSMENT: 1. Atypical chest pain. 2. Paroxysmal supraventricular tachycardia, status post ablation. 3. History of hypercoagulable disorder. PLAN: The patient will undergo a dobutamine stress echo and further workup as needed. MMODL / IJN: [id number] /
--- NOTE | 2022-09-20 16:08 | P.HPIM ---
History of Present Illness H&P Date: 09/20/22 History of present illness; patient is 67-year-old gentleman with past medical history significant for SVT, history of hypercoagulable disorder who presented to the ER because of chest pain. Patient describes chest pain as sharp, states that chest pain going to his back, states this pain is similar to one that he had at that time that he had ablation. Denies any aggravating or relieving factors associated with this chest pain. Denies any shortness of breath. Patient was worked up in the ER initial lab work showed hemoglobin of 6.3, platelet count of 188, sodium 137, potassium 4.4, chloride 104, BUN 15, creatinine 0.55. Patient was admitted to hospitalist service for further evaluation and treatment REVIEW OF SYSTEMS: CONSTITUTIONAL: No fever, no malaise, no fatigue. HEENT: No recent visual problems or hearing problems. Denied any sore throat. CARDIOVASCULAR: No orthopnea, PND, no palpitations, no syncope. PULMONARY: No shortness of breath, no cough, no hemoptysis. GASTROINTESTINAL: No diarrhea, no nausea, no vomiting, no abdominal pain. NEUROLOGICAL: No headaches, no weakness, no numbness. HEMATOLOGICAL: Denies any bleeding or petechiae. GENITOURINARY: Denies any burning micturition, frequency, or urgency. MUSCULOSKELETAL/RHEUMATOLOGICAL: Denies any joint pain, swelling, or any muscle pain. ENDOCRINE: Denies any polyuria or polydipsia. The rest of the 14-point review of systems is negative. PHYSICAL EXAMINATION: GENERAL: The patient is alert and oriented x3, not in any acute distress. Well developed, well nourished. HEENT: Pupils are round and equally reacting to light. EOMI. No scleral icterus. No conjunctival pallor. Normocephalic, atraumatic. No pharyngeal erythema. No thyromegaly. CARDIOVASCULAR: S1 and S2 present. No murmurs, rubs, or gallops. PULMONARY: Chest is clear to auscultation, no wheezing or crackles. ABDOMEN: Soft, nontender, nondistended, normoactive bowel sounds. No palpable organomegaly. MUSCULOSKELETAL: No joint swelling or deformity. EXTREMITIES: No cyanosis, clubbing, or pedal edema. NEUROLOGICAL: Gross neurological examination did not reveal any focal deficits. SKIN: No rashes. Assessment and plan Chest pain History of SVT History of hypercoagulable disorder Plan; Monitor vital signs Monitor CBC Trend troponin Continue telemetry monitoring Follow-up on cardiology recommendations Resume home meds Past Medical History Past Medical History: Blood Disorder, Musculoskeletal Disorder, Osteoarthritis (OA), Pulmonary Embolus (PE) Additional Past Medical History / Comment(s): hx:charcot gabriel tooth disease -we ars braces on legs, PE x3-last time 3 yrs ago, chronic back pain, See Dr. Goldstein's H&P. History of Any Multi-Drug Resistant Organisms: None Reported Past Surgical History: Back Surgery, Hernia Repair, Orthopedic Surgery Additional Past Surgical History / Comment(s): cynthia ankles and rt knee surgery with hardware, neck fusion, back surgery with 4 titanium rods, hernia repair 12/15/18, feet surgery. Past Anesthesia/Blood Transfusion Reactions: Previous Problems w/ Anesthesia, Motion Sickness Additional Past Anesthesia/Blood Transfusion Reaction / Comment(s): Difficulty waking up with one of his surgeries. Past Psychological History: Depression Smoking Status: Never smoker Past Alcohol Use History: None Reported Past Drug Use History: None Reported - Past Family History Father Family Medical History: Cancer Additional Family Medical History / Comment(s): prostate Mother Family Medical History: Dementia Additional Family Medical History / Comment(s): still alive Medications and Allergies Home Medications Medication Instructions Recorded Confirmed Type Spironolactone 50 mg PO DAILY 06/20/22 09/20/22 History Apixaban [Eliquis] 5 mg PO BID 09/20/22 09/20/22 History Losartan [Cozaar] 25 mg PO DAILY 09/20/22 09/20/22 History Allergies Allergy/AdvReac Type Severity Reaction Status Date / Time No Known Allergies Allergy Verified 09/20/22 11:54 Physical Exam Vitals: Vital Signs Temp Pulse Pulse Resp BP BP Pulse Ox 09/20/22 15:00 99.0 F 82 16 82/54 97 09/20/22 14:00 80 16 09/20/22 09:32 136/81 09/20/22 08:00 80 16 09/20/22 07:55 98.5 F 80 16 89/54 99 09/20/22 07:20 97 09/20/22 02:06 98.0 F 87 18 101/70 97 09/20/22 01:14 80 18 101/70 98 09/20/22 00:08 90 18 113/73 98 09/19/22 23:19 88 15 100/69 96 09/19/22 22:47 96.2 F L 127 H 16 119/83 95 Intake and Output 09/20/22 09/20/22 09/20/22 06:59 14:59 22:59 Intake Total 240 118 Balance 240 118 Intake: Oral 240 118 Other: Voiding Method Toilet Toilet # Voids 2 Weight 122.47 kg Results CBC & Chem 7: 09/19/22 23:04 09/19/22 23:04 Labs: Abnormal Lab Results - Last 24 Hours (Table) 09/19/22 09/19/22 Range/Units 23:04 23:04 Neutrophils # 8.2 H (1.3-7.7) k/uL Lymphocytes # 0.5 L (1.0-4.8) k/uL Creatinine 0.55 L (0.66-1.25) mg/dL Glucose 173 H (74-99) mg/dL
[2022-09-20] MEDS ORDERED: APIXABAN 2.5 MG TABLET PO SCH (21:00)
[2022-09-21] MEDS: SODIUM CHLORIDE 0.9% 1,000 ML IV SCH (02:10)
[2022-09-21] MEDS: APIXABAN 5 MG TAB PO SCH ×2 (08:41→20:25)
[2022-09-21 09:06] LABS: Basophils # (A) 0.04 X 10*3/uL (0.00-0.10); Basophils % (A) 0.7 %; Eosinophils # (A) 0.07 X 10*3/uL (0.04-0.35); Eosinophils % (A) 1.2 %; HCT 43.6 % (39.6-50.0); HGB 14.5 g/dL (13.0-17.0); Immature Grans, Automated 0.5 %; Lymphocytes # (A) 1.01 X 10*3/uL (0.90-5.00); Lymphocytes % (A) 17.1 %; MCHC 33.3 g/dL (32.0-37.0); MCV 93.2 fL (80.0-97.0); Mean Platelet Volume 10.5 fL (9.5-12.2); Monocytes # (A) 0.82 X 10*3/uL (0.20-1.00); Monocytes % (A) 13.9 %; NRBC Per 100 WBC 0 /100 WBCS (0.0-0.0); Neutrophils # (A) 3.92 X 10*3/uL (1.80-7.70); Neutrophils % (A) 66.6 %; Platelet Count 165 X 10*3/uL (140-440); RBC 4.68 X 10*6/uL (4.40-5.60); RDW 13.3 % (11.5-14.5); WBC 5.89 X 10*3/uL (4.50-10.00)
[2022-09-21 09:12] LABS: African American GFR (CKD) 131.8 (60.0-200.0); Albumin 3.6 g/dL (3.8-4.9); Albumin/Globulin Ratio 1.38 (1.60-3.17); Anion Gap 7.9 mmol/L (10.00-18.00); BUN/Creat Ratio 18.8 Ratio (12.00-20.00); Blood Urea Nitrogen 9.4 mg/dL (9.0-27.0); Calcium 8.2 mg/dL (8.7-10.3); Carbon Dioxide 25.1 mmol/L (20.0-27.5); Globulin 2.6 g/dL (1.6-3.3); Non-African American GFR(CKD) 113.7 (60.0-200.0); Phosphorus 2.9 mg/dL (2.4-5.1); Total Bilirubin 0.5 mg/dL (0.30-1.20); Total Protein 6.2 g/dL (6.2-8.2)
--- NOTE | 2022-09-21 10:40 | PN ---
PROGRESS NOTE SUBJECTIVE: A 67-year-old gentleman with history of hypercoagulable disorder who was admitted to hospital with chest pain, has history of paroxysmal SVT and had prior ablation. His chest discomfort is sharp, atypical, and interscapular. OBJECTIVE: GENERAL: Comfortable at rest. VITAL SIGNS: Stable. NECK: There is no jugular venous distention. Carotid upstroke is normal. There is no bruit. CHEST: Reveals good air entry bilaterally. HEART: Reveals first and second heart sounds. No gallop, no murmur. ABDOMEN: Soft, nontender. EXTREMITIES: Did not reveal any edema. Peripheral pulses are felt. ASSESSMENT: Chest pain, rule out coronary artery disease. PLAN: Patient will undergo a dobutamine stress echo tomorrow. If that looks normal, he can be discharged home. MMODL / IJN: [id number] /
--- NOTE | 2022-09-21 11:55 | P.PN ---
Subjective Progress Note Date: 09/21/22 patient is 67-year-old gentleman with past medical history significant for SVT, history of hypercoagulable disorder who presented to the ER because of chest pain. Patient describes chest pain as sharp, states that chest pain going to his back, states this pain is similar to one that he had at that time that he had ablation. Denies any aggravating or relieving factors associated with this chest pain. Denies any shortness of breath. Patient was worked up in the ER initial lab work showed hemoglobin of 6.3, platelet count of 188, sodium 137, potassium 4.4, chloride 104, BUN 15, creatinine 0.55. Patient was admitted to hospitalist service for further evaluation and treatment 09/21. Patient was seen and examined. Sitting upright in the chair. Denies any chest pain. no lightheadedness or dizziness. Vital signs stable REVIEW OF SYSTEMS: CONSTITUTIONAL: No fever, no malaise,. CARDIOVASCULAR: No chest pain, no palpitations, no syncope. PULMONARY: No shortness of breath, no cough, GASTROINTESTINAL: No diarrhea, no nausea, no vomiting, no abdominal pain. NEUROLOGICAL: No headaches, no weakness, PHYSICAL EXAMINATION: GENERAL: The patient is alert and oriented x3, not in any acute distress. Well developed, well nourished. HEENT: Pupils are round and equally reacting to light. EOMI. No scleral icterus. No conjunctival pallor. Normocephalic, atraumatic. No pharyngeal erythema. No thyromegaly. CARDIOVASCULAR: S1 and S2 present. No murmurs, rubs, or gallops. PULMONARY: Chest is clear to auscultation, no wheezing or crackles. ABDOMEN: Soft, nontender, nondistended, normoactive bowel sounds. No palpable organomegaly. MUSCULOSKELETAL: No joint swelling or deformity. EXTREMITIES: No cyanosis, clubbing, or pedal edema. NEUROLOGICAL: Gross neurological examination did not reveal any focal deficits. SKIN: No rashes. Assessment and plan Chest pain History of SVT History of hypercoagulable disorder Plan; Monitor vital signs Monitor CBC Trend troponin Continue telemetry monitoring Continue Eliquis Nothing by mouth after midnight , patient scheduled for dobutamine stress echo for tomorrow Follow-up on cardiology recommendations Objective - Vital Signs Vital signs: Vital Signs Temp 98.5 F 09/21/22 07:35 Pulse 92 09/21/22 08:00 Resp 16 09/21/22 08:00 BP 104/68 09/21/22 07:35 Pulse Ox 96 09/21/22 07:35 FiO2 Intake & Output 09/20/22 09/21/22 09/21/22 18:59 06:59 18:59 Intake Total 236 1080 118 Balance 236 1080 118 Intake: Oral 236 1080 118 Other: Voiding Method Toilet Toilet Toilet # Voids 1 - Labs CBC & Chem 7: 09/21/22 06:44 09/21/22 06:44 Labs: Abnormal Lab Results - Last 24 Hours (Table) 09/21/22 Range/Units 06:44 Anion Gap 7.90 L (10.00-18.00) mmol/L Creatinine 0.5 L (0.6-1.5) mg/dL Glucose 121 H (70-110) mg/dL Calcium 8.2 L (8.7-10.3) mg/dL Albumin 3.6 L (3.8-4.9) g/dL Albumin/Globulin Ratio 1.38 L (1.60-3.17) g/dL
[2022-09-22] MEDS: SODIUM CHLORIDE 0.9% 1,000 ML IV SCH (02:09)
[2022-09-22] MEDS ORDERED: DOBUTamine DRIP for NUC MED 500 MG in DEXTROSE/WATER 1 250ML.BAG IV PRN (07:00)
[2022-09-22 08:10] VITALS: BP 112/78; PULSE 83; RESP 17; TEMP 98
--- NOTE | 2022-09-22 09:49 | P.PN ---
Subjective Progress Note Date: 09/22/22 HISTORY OF PRESENT ILLNESS: This is a 67-year-old male who sees Dr. Goldstein in the office. Patient is admitted to the hospital secondary to chest pain. Patient examined this morning at the bedside. Patient denies any further episodes of chest pain or pressure. He denies shortness of breath. Vital signs are stable. PHYSICAL EXAM: VITAL SIGNS: Reviewed. GENERAL: Well-developed in no acute distress. NECK: Supple. No JVD or thyromegaly LUNGS: Respirations even and unlabored. Lungs essentially clear to auscultation bilaterally. HEART: Regular rate and rhythm. S1 and S2 heard. EXTREMITIES: Normal range of motion. No clubbing or cyanosis. Peripheral pulses intact. No lower extremity edema ASSESSMENT: Chest pain, troponins negative 3 History of paroxysmal SVT with previous ablation PLAN: Resume home cardiac medications Patient to undergo dobutamine stress echo today If negative, he may be discharged home from a cardiac standpoint Nurse practitioner note has been reviewed by physician. Signing provider agrees with the documented findings, assessment, and plan of care. Objective - Vital Signs Vital signs: Vital Signs Temp 98 F 09/22/22 07:00 Pulse 83 09/22/22 07:00 Resp 17 09/22/22 07:00 BP 112/78 09/22/22 07:00 Pulse Ox 97 09/22/22 07:00 FiO2 Intake & Output 09/21/22 09/22/22 09/22/22 18:59 06:59 18:59 Intake Total 716 1080 Output Total 3 Balance 713 1080 Intake: Oral 716 1080 Output: Urine 3 Other: Voiding Method Toilet Toilet - Labs CBC & Chem 7: 09/21/22 06:44 09/21/22 06:44
--- NOTE | 2022-09-22 10:56 | P.DS ---
Providers Date of admission: 09/20/22 00:49 Expected date of discharge: 09/22/22 Attending physician: Demetrius Steen MD Consults: 09/20/22 00:48 Consult Physician Routine Consulting Provider: Toy Goldstein Consult Reason/Comments: known Do you want consulting provider notified?: Yes Primary care physician: [facility] Course: Final Diagnoses: Chest pain History of SVT with previous ablation History of PE Chronic back and neck pain, history of neck fusion and back surgery This 67-year-old gentleman admitted with chest pain, troponin is negative 3. Evaluated by cardiology, scheduled for dobutamine stress echo today. Patient reports last night developed left chest pain radiating up into the left axilla while watching TV, accompanied by nausea, no shortness of breath. Reports chronic back pain. Patient also disclosed,prior to coming in,while at home he developed generalized chill sensation throughout his body resembling prior lower extremity infections. Complains of coldness, dry skin. TSH/T4, CRP, pro- calcitonin levels ordered with results to be faxed to PCPs office and reviewed at follow-up visit with PCP. Afebrile, normal WBC, trace edema of bilateral lower extremities. Currently denies cough congestion chills , chest pain, palpitations,shortness of breath, lightheadedness, dizziness or focal deficits. Patient will be discharged home today, in a stable condition with guarded prognosis, pending stress results, final DC recommendations and clearance per cardiology. The impression and plan of care has been dictated as directed. : I performed a history and examination of this patient, discussed the same with the dictator. I agree with the dictator's note ,documented as a scribe. Any additional findings or plans will be noted. Patient Condition at Discharge: Stable Plan - Discharge Summary Discharge Rx Participant: No New Discharge Prescriptions: Continue Losartan [Cozaar] 25 mg PO DAILY Spironolactone 50 mg PO DAILY Apixaban [Eliquis] 5 mg PO BID Discharge Medication List Spironolactone 50 mg PO DAILY 06/20/22 [History] Apixaban [Eliquis] 5 mg PO BID 09/20/22 [History] Losartan [Cozaar] 25 mg PO DAILY 09/20/22 [History] Follow up Appointment(s)/Referral(s): Toy Goldstein MD [STAFF PHYSICIAN] - 1 Week Nati Steen DO [Primary Care Provider] - 3 Days Activity/Diet/Wound Care/Special Instructions: TSH,T4, CRP and procalcitonin levels to be faxed to PCP, Dr. Steen's office-to be further followed up in clinic.
[2022-09-22] MEDS: APIXABAN 5 MG TAB PO SCH (11:27)
[2022-09-22] MEDS ORDERED: SPIRONOLACTONE 25 MG TAB PO STA (12:11)
[2022-09-22] MEDS ORDERED: LOSARTAN 25 MG TAB PO STA (12:11)
--- NOTE | 2022-09-22 16:17 | CA ---
Dobutamine Stress Echocardiogram Report Urban Gómez Age: 67 Gender: M : 1955 Exam Date: 09/22/2022 09:47 Exam Location: [facility] Ordering Physician: Paolo Main MD ([id number]) Referring Physician: Jose David EMMANUEL Book Sewing Machine Operator: MILA Technologist: Ht (in): 72 Wt (lb): 270 Procedure CPT: Indication: CP ICD-9 Codes: Rhythm: Patient History: Cardiac Medications: Medications in past 24 hours: Contrast: Lumason Total Dose (mL): Stress Results Protocol: Dobutamine Peak Dose (???g/kg/min): 30 Duration (min:sec): Atropine:(mg) Target HR: 132 Double Product: Resting HR: 90 Resting BP: 155 / 88 Peak HR: 149 Peak BP: 131 / 73 Max Predicted HR: 155 96 % Max Predicted HR Stress Summary: BP Response: Reason for Termination: Exceeded target heart rate (85% max predicted) Cardiac Symptoms: NO SYMPTOMS ECG Analysis Resting EKG: Stress EKG: Arrhythmia: Echo Analysis Base Echo Analysis: Low Echo Anaylsis: Peak Echo Analysis: Recovery Echo: MEASUREMENTS (Male/Female) Normal Values CONCLUSIONS Dobutamine stress echo after 30 mics Peak heart rate 149 beats a minute. Peak blood pressure 118/78 mmHg No ECG evidence of ischemia No echocardiographic of ischemia Occasional PVCs Dr. Toy Goldstein MD (Electronically Signed) Final Date: 22 September 2022 16:17
[2022-09-22 16:30] LABS: C Reactive Protein 3.3 mg/dL (0.00-0.80)
--- NOTE | 2022-09-22 17:56 | CA ---
Transthoracic Echo Report Name: Urban Gómez Age: 67 Gender: M : 1955 Exam Date: 09/22/2022 10:15 Exam Location: [facility] Ht (in): 72 Wt (lb): 270 Ordering Physician: Paolo Main MD ([id number]) Attending/Referring Phys: Jose David EMMANUEL Card Hanger Mary Sanford RDCS Procedure CPT: Indications: CP Cardiac Hx: Technical Quality: Technically difficult study Contrast 1: Lumason Total Dose (mL): 4 Contrast 2: Total Dose (mL): MEASUREMENTS (Male / Female) Normal Values 2D ECHO LV Diastolic Diameter PLAX 3.3 cm 4.2 - 5.9 / 3.9 - 5.3 cm LV Systolic Diameter PLAX 3.2 cm IVS Diastolic Thickness 1.6 cm 0.6 - 1.0 / 0.6 - 0.9 cm LVPW Diastolic Thickness 1.6 cm 0.6 - 1.0 / 0.6 - 0.9 cm LV Relative Wall Thickness 1.0 RV Internal Dim ED PLAX 3.9 cm DOPPLER AV Peak Velocity 104.1 cm/s AV Peak Gradient 4.3 mmHg MV Area PHT 3.6 cm??? Mitral E Point Velocity 60.6 cm/s Mitral A Point Velocity 79.7 cm/s Mitral E to A Ratio 0.8 MV Deceleration Time 208.6 ms FINDINGS Left Ventricle Moderately increased septal wall thickness. Normal left ventricular systolic function with no obvious regional wall motion abnormalities. Left ventricular ejection fraction is estimated at 55 %. Right Ventricle Mild right ventricular dilatation. Right Atrium Normal right atrial size. Left Atrium Normal left atrial size. Mitral Valve No mitral stenosis, regurgitation or prolapse. Aortic Valve No aortic valve stenosis or regurgitation. Tricuspid Valve Mild tricuspid regurgitation. Pulmonic Valve Trace pulmonic regurgitation. Pericardium No pericardial effusion. Aorta Normal size aortic root and proximal ascending aorta. CONCLUSIONS LVH with ejection fraction greater than 55% Suboptimal acoustic windows Previewed by: Dr. Toy Goldstein MD (Electronically Signed) Final Date: 22 September 2022 17:56
[2022-09-23] MEDS ORDERED: SPIRONOLACTONE 25 MG TAB PO SCH (09:00)
[2022-09-23] MEDS ORDERED: LOSARTAN 25 MG TAB PO SCH (09:00)
== END 2022-09-22 17:32 | disposition home or self-care (01) ==
LOC: EC 22:45 → 6NMEDSUR 09-20 00:49
PROVIDERS: ADMIT Family Medicine; ATTEND Family Medicine
DX: R07.89 Other chest pain (principal); I47.1 Supraventricular tachycardia; G60.0 Hereditary motor and sensory neuropathy; G89.29 Other chronic pain; M54.9 Dorsalgia, unspecified; M54.2 Cervicalgia; R51.9 Headache, unspecified; R11.0 Nausea; R53.1 Weakness; D68.59 Other primary thrombophilia; M19.90 Unspecified osteoarthritis, unspecified site; F32.A Depression, unspecified; M21.379 Foot drop, unspecified foot; Z79.01 Long term (current) use of anticoagulants; Z79.899 Other long term (current) drug therapy; Z86.711 Personal history of pulmonary embolism; Z98.1 Arthrodesis status; Z98.890 Other specified postprocedural states; Z80.42 Family history of malignant neoplasm of prostate; Z82.0 Family history of epilepsy and other diseases of the nervous system
CPT/HCPCS: 96361 ×2; 96374; 96375; 99285; 36415; 94760 ×2; 93005; 84439; 83880; 80053 ×2; 84443; 83690; 83735 ×2; 84100; 84484 ×2; 85025 ×2; 85610; 85730; 86140; 84145; 71045; G0378 ×3; C8929; C8930; J1250; J2270; J2405; Q9950; 93306; 93351

== ENCOUNTER 2024-09-29 18:44 | Observation (INO) | payer MEDICARE ==
[2024-09-29] MEDS: ASPIRIN 81 MG PO STA (19:02)
[2024-09-29] MEDS: NITROGLYCERIN OINT 1 INCH/GM PACKET TOPICAL STA (19:02)
--- NOTE | 2024-09-29 19:02 | ED ---
General Adult HPI - General Chief complaint: Chest Pain Stated complaint: chest pain Time Seen by Provider: 09/29/24 18:50 Source: patient, EMS, RN notes reviewed Mode of arrival: EMS Limitations: no limitations - History of Present Illness Initial comments: Patient is a 69-year-old male present to the emergency department with concern for chest discomfort. Discomfort is described as tightness. Patient did have associated dyspnea. Patient did have associated sweating. Discomfort was some somewhat severe and significantly improved with nitroglycerin, now near resolved. Patient states discomfort was in the chest however somewhat in the back. Patient did have back surgery done 3 months ago. - Related Data Home Medications Medication Instructions Recorded Confirmed Apixaban [Eliquis] 5 mg PO BID 09/20/22 09/29/24 Losartan [Cozaar] 25 mg PO DAILY 09/20/22 09/29/24 Cyanocobalamin (Vitamin B-12) 1,000 mcg PO DAILY 09/29/24 09/29/24 [Vitamin B-12] DULoxetine HCL [Cymbalta] 60 mg PO DAILY 09/29/24 09/29/24 Ergocalciferol (Vitamin D2) 1,250 mcg PO TU 09/29/24 09/29/24 [Drisdol (50,000 Iu)] Folic Acid 1 mg PO DAILY 09/29/24 09/29/24 Metoprolol Succinate [Metoprolol 25 mg PO DAILY 09/29/24 09/29/24 Succinate ER] Ondansetron Odt [Zofran Odt] 4 mg PO Q6H PRN 09/29/24 09/29/24 Rosuvastatin [Crestor] 20 mg PO DAILY 09/29/24 09/29/24 Sennosides/Docusate Sodium [Senna 1 tab PO BID 09/29/24 09/29/24 Plus 8.6-50 mg Tablet] metFORMIN HCL 250 mg PO BID 09/29/24 09/29/24 methocarbamoL [Robaxin-750] 750 mg PO Q6H PRN 09/29/24 09/29/24 polyethylene glycoL 3350 [Miralax] 17 gm PO DAILY PRN 09/29/24 09/29/24 Allergies Allergy/AdvReac Type Severity Reaction Status Date / Time No Known Allergies Allergy Verified 09/29/24 18:51 Review of Systems ROS Statement: Those systems with pertinent positive or pertinent negative responses have been documented in the HPI. ROS Other: All systems not noted in ROS Statement are negative. Constitutional: Denies: fever Eyes: Denies: eye pain ENT: Denies: ear pain Respiratory: Reports: as per HPI. 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 Goldstein's H&P. History of Any Multi-Drug Resistant Organisms: None Reported Past Surgical History: Back Surgery, Hernia Repair, Orthopedic Surgery Additional Past Surgical History / Comment(s): cynthia ankles and rt knee surgery with hardware, neck fusion, back surgery with 4 titanium rods, hernia repair 12/15/18, feet surgery. Past Anesthesia/Blood Transfusion Reactions: Previous Problems w/ Anesthesia, Motion Sickness Additional Past Anesthesia/Blood Transfusion Reaction / Comment(s): Difficulty waking up with one of his surgeries. Past Psychological History: Depression Smoking Status: Never smoker Past Alcohol Use History: None Reported Past Drug Use History: None Reported - Past Family History Father Family Medical History: Cancer Additional Family Medical History / Comment(s): prostate Mother Family Medical History: Dementia Additional Family Medical History / Comment(s): still alive General Exam Limitations: no limitations General appearance: alert, in no apparent distress Head exam: Present: normocephalic Neck exam: Present: normal inspection Respiratory exam: Present: normal lung sounds bilaterally. Absent: chest wall tenderness Cardiovascular Exam: Present: regular rate, normal rhythm, normal heart sounds Expanded Peripheral pulses: 2+: Radial (R), Radial (L), Dorsalis Pedis (R), Dorsalis Pedis (L) GI/Abdominal exam: Present: soft. Absent: tenderness Extremities exam: Present: normal inspection. Absent: pedal edema, calf tende rness Neurological exam: Present: alert Psychiatric exam: Present: normal affect, normal mood Skin exam: Present: normal color Course Vital Signs 09/29/24 09/29/24 18:46 20:00 Temperature 97.5 F L Pulse Rate 84 80 Respiratory 20 16 Rate Blood Pressure 106/67 114/70 O2 Sat by Pulse 93 L 92 L Oximetry EKG Findings - EKG Results: EKG: interpreted by MICHAELD, sinus rhythm, normal axis, normal QRS, normal ST/T Medical Decision Making - Medical Decision Making Was pt. sent in by a medical professional or institution (, PA, PARIMUTUEL CASHIER, urgent ca re, hospital, or usp...) When possible be specific @ -No Did you speak to anyone other than the patient for history (EMS, parent, family, police, friend...)? What history was obtained from this source @ -No Did you review nursing and triage notes (agree or disagree)? Why? @ -I reviewed and agree with nursing and triage notes Were old charts reviewed (outside hosp., previous admission, EMS record, old EKG, old radiological studies, urgent care reports/EKG's, usp records)? Report findings @ -No old charts were reviewed Differential Diagnosis (chest pain, altered mental status, abdominal pain women, abdominal pain men, vaginal bleeding, weakness, fever, dyspnea, syncope, headache, dizziness, GI bleed, back pain, seizure, CVA, palpatations, mental health, musculoskeletal)? @ -Differential Chest Pain: Stable Angina, Unstable Angina, STEMI, NSTEMI Aortic Dissection, Pneumothorax, Musculoskeletal, Esophageal Spasm GERD, Cholecystitis, Pancreatitis, Zoster, this is not meant to be an all-inclusive list. EKG interpreted by me (3pts min.). @ -As above X-rays interpreted by me (1pt min.). @ -Chest x-ray without acute abnormality CT interpreted by me (1pt min.). @ -CT scan does not reveal acute abnormality. There is gallstone U/S interpreted by me (1pt. min.). @ -None done What testing was considered but not performed or refused? (CT, X-rays, U/S, labs)? Why? @ -None What meds were considered but not given or refused? Why? @ -None Did you discuss the management of the patient with other professionals (professionals i.e. , PA, PARIMUTUEL CASHIER, lab, RT, psych nurse, criminal justice social worker, district plant supervisor, teacher, alumni relations officer, bilingual case manager)? Give summary @ -Case discussed with practitioner Carol Catalan covering Dr. Jones Was smoking cessation discussed for >3mins.? @ -No Was critical care preformed (if so, how long)? @ -No Were there social determinants of health that impacted care today? How? (Homelessness, low income, unemployed, alcoholism, drug addiction, tr ansportation, low edu. Level, literacy, decrease access to med. care, group home, rehab)? @ -No Was there de-escalation of care discussed even if they declined (Discuss DNR or withdrawal of care, Hospice)? DNR status @ -No What co-morbidities impacted this encounter? (DM, HTN, Smoking, COPD, CAD, Cancer, CVA, ARF, Chemo, Hep., AIDS, mental health diagnosis, sleep apnea, morbid obesity)? @ -None Was patient admitted / discharged? Hospital course, mention meds given and route, prescriptions, significant lab abnormalities, going to OR and other pertinent info. @ -Patient presents with chest discomfort. Symptoms did improve with nitroglycerin. Initial troponin unremarkable. D-dimer was elevated and CT scan without evidence of acute abnormality. Patient reevaluated and resting in bed. Patient and family updated on results and plan. Patient to be admitted, admission orders written. Ultrasound of the gallbladder will be added Undiagnosed new problem with uncertain prognosis? @ -No Drug Therapy requiring intensive monitoring for toxicity (Heparin, Nitro, Insulin, Cardizem)? @ -No Were any procedures done? @ -No Diagnosis/symptom? @ -Chest pain Acute, or Chronic, or Acute on Chronic? @ -Acute Uncomplicated (without systemic symptoms) or Complicated (systemic symptoms)? @ -Default Side effects of treatment? @ -No Exacerbation, Progression, or Severe Exacerbation? @ -No Poses a threat to life or bodily function? How? (Chest pain, [place], MT, pneumonia, PE, COPD, DKA, ARF, appy, cholecystitis, CVA, Diverticulitis, Homicidal, Suicidal, threat to staff... and all critical care pts) @ -Threat to cardiac and GI - Lab Data Result diagrams: 09/29/24 18:58 09/29/24 18:58 Lab Results 09/29/24 09/29/24 09/29/24 Range/Units 18:58 18:58 18:58 WBC 9.4 (3.8-10.6) k/uL RBC 4.76 (4.30-5.90) m/uL Hgb 14.0 (13.0-17.5) gm/dL Hct 41.9 (39.0-53.0) % MCV 88.1 (80.0-100.0) fL MCH 29.5 (25.0-35.0) pg MCHC 33.5 (31.0-37.0) g/dL RDW 14.9 (11.5-15.5) % Plt Count 200 (150-450) k/uL MPV 8.1 Neutrophils % 79 % Lymphocytes % 12 % Monocytes % 5 % Eosinophils % 2 % Basophils % 0 % Neutrophils # 7.4 (1.3-7.7) k/uL Lymphocytes # 1.2 (1.0-4.8) k/uL Monocytes # 0.5 (0-1.0) k/uL Eosinophils # 0.2 (0-0.7) k/uL Basophils # 0.0 (0-0.2) k/uL PT 10.7 (10.0-12.5) sec INR 1.0 (<1.2) APTT 24.6 (22.0-30.0) sec D-Dimer 2.27 H (<0.60) mg/L FEU Sodium 138 (137-145) mmol/L Potassium 4.0 (3.5-5.1) mmol/L Chloride 102 (98-107) mmol/L Carbon Dioxide 23 (22-30) mmol/L Anion Gap 13 mmol/L BUN 13 (9-20) mg/dL Creatinine 0.55 L (0.66-1.25) mg/dL Est GFR (CKD-EPI)AfAm >90 (>60 ml/min/1.73 sqM) Est GFR (CKD-EPI)NonAf >90 (>60 ml/min/1.73 sqM) Glucose 170 H (74-99) mg/dL Calcium 8.9 (8.4-10.2) mg/dL Magnesium 2.2 (1.6-2.3) mg/dL Total Bilirubin 1.0 (0.2-1.3) mg/dL AST 76 H (17-59) U/L ALT 33 (4-49) U/L Alkaline Phosphatase 143 H (38-126) U/L Troponin I (0.000-0.034) ng/mL NT-Pro-B Natriuret Pep 35 pg/mL Total Protein 7.0 (6.3-8.2) g/dL Albumin 3.9 (3.5-5.0) g/dL Amylase 61 (30-110) U/L Lipase 75 (23-300) U/L 09/29/24 Range/Units 18:58 WBC (3.8-10.6) k/uL RBC (4.30-5.90) m/uL Hgb (13.0-17.5) gm/dL Hct (39.0-53.0) % MCV (80.0-100.0) fL MCH (25.0-35.0) pg MCHC (31.0-37.0) g/dL RDW (11.5-15.5) % Plt Count (150-450) k/uL MPV Neutrophils % % Lymphocytes % % Monocytes % % Eosinophils % % Basophils % % Neutrophils # (1.3-7.7) k/uL Lymphocytes # (1.0-4.8) k/uL Monocytes # (0-1.0) k/uL Eosinophils # (0-0.7) k/uL Basophils # (0-0.2) k/uL PT (10.0-12.5) sec INR (<1.2) APTT (22.0-30.0) sec D-Dimer (<0.60) mg/L FEU Sodium (137-145) mmol/L Potassium (3.5-5.1) mmol/L Chloride (98-107) mmol/L Carbon Dioxide (22-30) mmol/L Anion Gap mmol/L BUN (9-20) mg/dL Creatinine (0.66-1.25) mg/dL Est GFR (CKD-EPI)AfAm (>60 ml/min/1.73 sqM) Est GFR (CKD-EPI)NonAf (>60 ml/min/1.73 sqM) Glucose (74-99) mg/dL Calcium (8.4-10.2) mg/dL Magnesium (1.6-2.3) mg/dL Total Bilirubin (0.2-1.3) mg/dL AST (17-59) U/L ALT (4-49) U/L Alkaline Phosphatase (38-126) U/L Troponin I <0.012 (0.000-0.034) ng/mL NT-Pro-B Natriuret Pep pg/mL Total Protein (6.3-8.2) g/dL Albumin (3.5-5.0) g/dL Amylase (30-110) U/L Lipase (23-300) U/L Disposition Clinical Impression: Chest pain Disposition: ADMITTED IP TO THIS HOSP Is patient prescribed a controlled substance at d/c from ED?: No Referrals: Nati Steen DO [REFERRING] - 1-2 days Time of Disposition: 20:54
[2024-09-29 19:13] LABS: Basophils % (A) 0 %; Eosinophils # (A) 0.2 k/uL (0-0.7); Eosinophils % (A) 2 %; HCT 41.9 % (39.0-53.0); Lymphocytes # (A) 1.2 k/uL (1.0-4.8); Lymphocytes % (A) 12 %; MCH 29.5 pg (25.0-35.0); MCHC 33.5 g/dL (31.0-37.0); MCV 88.1 fL (80.0-100.0); Mean Platelet Volume 8.1; Monocytes # (A) 0.5 k/uL (0-1.0); Monocytes % (A) 5 %; Neutrophils # (A) 7.4 k/uL (1.3-7.7); Neutrophils % (A) 79 %; Platelet Count 200 k/uL (150-450); RBC 4.76 m/uL (4.30-5.90); RDW 14.9 % (11.5-15.5); WBC 9.4 k/uL (3.8-10.6)
[2024-09-29 19:27] LABS: ALT 33 U/L (4-49); AST 76 U/L (17-59); African American GFR (CKD) >90 (>60 ml/min/1.73 sqM); Albumin 3.9 g/dL (3.5-5.0); Alkaline Phosphatase 143 U/L (38-126); Amylase 61 U/L (30-110); Anion Gap 13 mmol/L; Blood Urea Nitrogen 13 mg/dL (9-20); Calcium 8.9 mg/dL (8.4-10.2); Carbon Dioxide 23 mmol/L (22-30); Chloride 102 mmol/L (98-107); Glucose 170 mg/dL (74-99); Lipase 75 U/L (23-300); Magnesium 2.2 mg/dL (1.6-2.3); Non-African American GFR(CKD) >90 (>60 ml/min/1.73 sqM); Sodium 138 mmol/L (137-145)
[2024-09-29 19:34] LABS: NT-Pro-B-Type Natriuretic Pept 35 pg/mL
[2024-09-29 19:36] LABS: Partial Thromboplastin Time 24.6 sec (22.0-30.0); Prothrombin Time 10.7 sec (10.0-12.5)
--- NOTE | 2024-09-29 19:37 | XR ---
EXAMINATION TYPE: XR chest 2V DATE OF EXAM: 09/29/2024 7:28 PM COMPARISON: 09/19/2022 CLINICAL INDICATION: Male, 69 years old with history of Chest Pain, TECHNIQUE: XR chest 2V view(s) obtained. FINDINGS: The heart size is normal. The pulmonary vasculature is normal. The lungs are clear. Air-fluid levels within the abdomen on the lateral projections. IMPRESSION: 1. No acute pulmonary process. [facility], Workstation: [facility], 09/29/2024 7:35 PM
[2024-09-29] MEDS: NITROGLYCERIN SL TABS 0.4 MG TAB SUBLINGUAL STA (19:44)
--- NOTE | 2024-09-29 20:18 | CT ---
EXAMINATION TYPE: CT angio chest DATE OF EXAM: 09/29/2024 8:10 PM COMPARISON: None. CLINICAL INDICATION: Male, 69 years old with history of cp, Chest pain. TECHNIQUE: CT of the chest is performed on a spiral scan at 2 mm thick sections. Study is performed with intravenous contrast timed for evaluation for pulmonary embolism. This will limit additional po rtions of the evaluation. 3-D MIP images reconstructed by the technologist are reviewed on the compu ter in the coronal and sagittal planes. Contrast used:100ml mL of Isovue 370 with IV Contrast, (none if empty) Oral contrast used: (none if empty) CT DLP: 874.5 mGycm, Automated exposure control for dose reduction was used. FINDINGS: No persistent filling defects are evident to suggest an acute pulmonary embolism. No mediastinal or hilar adenopathy enlarged by CT criteria is evident. The ascending aorta diameter at the level of the main pulmonary artery is 3.9 cm. The main pulmonary artery diameter at the bifurcation is 2.6 cm. Lung windows are clear. Limited CT sections were through the upper abdomen. Gallstones are present. IMPRESSION: 1. No acute pulmonary embolism. 2. No acute pulmonary process. 3. Cholelithiasis [facility], Workstation: [facility], 09/29/2024 8:15 PM
[2024-09-29] MEDS ORDERED: polyethylene glycoL 3350 17 GM POWD.PACK PO PRN (20:56)
[2024-09-29] MEDS ORDERED: methocarbamoL 750 MG TAB PO PRN (20:56)
[2024-09-29] MEDS: ONDANSETRON ODT 4 MG TAB PO PRN (21:05)
[2024-09-29] MEDS: APIXABAN 5 MG TAB PO SCH (21:31)
[2024-09-29] MEDS: SENNOSIDES-DOCUSATE SODIUM 1 EACH TAB PO SCH (21:31)
[2024-09-30] MEDS: NITROGLYCERIN SL TABS 0.4 MG TAB SUBLINGUAL PRN (00:02)
[2024-09-30] MEDS: NITROGLYCERIN OINT 1 INCH/GM PACKET TOPICAL SCH (00:55)
[2024-09-30] MEDS: ACETAMINOPHEN TAB 325 MG TAB PO PRN (01:24)
[2024-09-30] MEDS: SODIUM CHLORIDE 0.9% 1,000 ML IV SCH (03:27)
[2024-09-30 05:01] LABS: Influenza A Not Detected (Not Detectd); Influenza B Not Detected (Not Detectd); RSV Not Detected (Not Detectd)
--- NOTE | 2024-09-30 07:55 | US ---
EXAMINATION TYPE: US gallbladder DATE OF EXAM: 09/30/2024 COMPARISON: Chest CT CLINICAL INDICATION: Male, 69 years old with history of pain; Pain TECHNIQUE: Grayscale and color Doppler imaging of the right upper quadrant was performed. FINDINGS: EXAM MEASUREMENTS: Liver Length: 16.6 cm. Normal less than 15.5 cm Gallbladder Wall: 0.2 cm CBD: 0.5 cm Right Kidney: 10.7 x 5.1 x 4.5 cm MEDICAL BILLER CODER NOTES: Limited views due to morbidly obese pt, unable to roll LLD and unable to take a breath in and hold it Pancreas: Obscured by bowel gas Liver: Visualized portions appeared wnl, left lobe unable to be visualized . There is likely some mi ld fatty infiltration of liver. Gallbladder: Known gallstones visualized at dependent portion, wall not thickened Evidence for sonographic Mcmahon's sign: No CBD: wnl Right Kidney: No evidence of hydro, 7mm echogenic foci at mid pole IMPRESSION: 1. Mild fatty infiltration liver. 2. Cholelithiasis. 3. Nonobstructing mid right renal stone [facility], , 09/30/2024 7:53 AM
[2024-09-30 08:32] LABS: Chol/HDL Ratio 1.76 Ratio; LDL Cholesterol,Calculated 24.5 mg/dL (0.0-131.0); VLDL Calculation 13.04 mg/dL (5.00-40.00)
[2024-09-30] MEDS: CYANOCOBALAMIN 500 MCG TAB PO SCH (09:43)
[2024-09-30] MEDS: ASPIRIN 325 MG TAB PO SCH (09:43)
[2024-09-30] MEDS: LOSARTAN 25 MG TAB PO SCH (09:43)
[2024-09-30] MEDS: METOPROLOL SUCCINATE (ER) 25 MG TAB.ER.24H PO SCH (09:44)
[2024-09-30] MEDS: DULoxetine HCL 60 MG CAPSULE.DR PO SCH (09:44)
[2024-09-30] MEDS: ATORVASTATIN 40 MG TAB PO SCH (09:44)
[2024-09-30] MEDS: FOLIC ACID 1 MG TAB PO SCH (09:44)
--- NOTE | 2024-09-30 12:02 | P.CRDCN ---
History of Present Illness History of present illness: HISTORY OF PRESENTING ILLNESS This is a pleasant 69-year-old with past medical history significant for hypertension, hypercoagulable state, normal coronary arteries, SVT and foot drop. He follows in the office with Dr Goldstein. He states he has been doing well up until approximately 3 days ago he started to get epigastric discomfort radiating around to his 12th rib on his left. He admits to some associated nausea and some diaphoresis. Pain resolved on Thursday and then he had more disc omfort later on Thursday and then presented to emergency department. EMS gave patient an aspirin as well as some nitro and pain gradually improved. He was placed on a nitro patch. EKG showing normal sinus rhythm with no ST or T-wave abnormalities. Troponins normal 4. CTA showed no PE however did show nonobstructing renal stone as well as cholelithiasis. He had normal heart catheterization from 2018. He states today he feels well. He did admit to being able to drink water and this improved most of his symptoms over the last few days. Recent normal stress test from 1 year ago REVIEW OF SYSTEMS At the time of my exam: CONSTITUTIONAL: Denies fever or chills. CARDIOVASCULAR: +chest pain, no shortness of breath, orthopnea, PND or palpitations. RESPIRATORY: Denies cough. GASTROINTESTINAL: Denies abdominal pain, diarrhea, constipation, +nausea, no vomiting. MUSCULOSKELETAL: Denies myalgias. NEUROLOGIC: Denies numbness, tingling or weakness. ENDOCRINE: Denies fatigue, weight change, polydipsia or polyurina. GENITOURINARY: Denies burning, hematuria or urgency with micturation. HEMATOLOGIC: Denies history of anemia or bleeding. PHYSICAL EXAMINATION Vital signs reviewed. CONSTITUTIONAL: No apparent distress. HEENT: Head is normocephalic. Pupils are equal, round. Sclerae anicteric. Mucous membranes of the mouth are moist. No JVD. No carotid bruit. CHEST EXAMINATION: Lungs are clear to auscultation. + mild reproducibility of right lateral rib 12th HEART EXAMINATION: Regular rate and rhythm. S1, S2 heard. No murmurs, gallops or rub. ABDOMEN: Soft, nontender. Positive bowel sounds. EXTREMITIES: 2+ peripheral pulses, no lower extremity edema and no calf tenderness. NEUROLOGIC EXAMINATION: Patient is awake, alert and oriented x3. ASSESSMENT Atypical chest pain, appears more GI related with mildly elevated liver enzymes and alk phos and cholelithiasis. Also somewhat reproducible Normal coronary arteries by heart catheterization 2018 Hypercoagulable state SVT Cholelithiasis Nonobstructing renal calculus PLAN Patient's symptoms appear more GI related with more epigastric discomfort improved with drinking water, nausea, dry heaving and some diaphoresis. Normal workup at this point with troponins and CTA and EKG. Recent stress test from approximately year ago negative. No further workup as an inpatient. 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 Goldstein's H&P. History of Any Multi-Drug Resistant Organisms: None Reported Past Surgical History: Back Surgery, Hernia Repair, Orthopedic Surgery Additional Past Surgical History / Comment(s): cynthia ankles and rt knee surgery with hardware, neck fusion, back surgery with 4 titanium rods, hernia repair 12/06 , feet surgery. Past Anesthesia/Blood Transfusion Reactions: Previous Problems w/ Anesthesia, Motion Sickness Additional Past Anesthesia/Blood Transfusion Reaction / Comment(s): Difficulty waking up with one of his surgeries. Past Psychological History: Depression Smoking Status: Never smoker Past Alcohol Use History: None Reported Past Drug Use History: None Reported - Past Family History Father Family Medical History: Cancer Additional Family Medical History / Comment(s): prostate Mother Family Medical History: Dementia Additional Family Medical History / Comment(s): still alive Medications and Allergies Home Medications Medication Instructions Recorded Confirmed Type Apixaban [Eliquis] 5 mg PO BID 09/20/22 09/29/24 History Losartan [Cozaar] 25 mg PO DAILY 09/20/22 09/29/24 History Cyanocobalamin (Vitamin B-12) 1,000 mcg PO DAILY 09/29/24 09/29/24 History [Vitamin B-12] DULoxetine HCL [Cymbalta] 60 mg PO DAILY 09/29/24 09/29/24 History Ergocalciferol (Vitamin D2) 1,250 mcg PO TU 09/29/24 09/29/24 History [Drisdol (50,000 Iu)] Folic Acid 1 mg PO DAILY 09/29/24 09/29/24 History Metoprolol Succinate [Metoprolol 25 mg PO DAILY 09/29/24 09/29/24 History Succinate ER] Ondansetron Odt [Zofran Odt] 4 mg PO Q6H PRN 09/29/24 09/29/24 History Rosuvastatin [Crestor] 20 mg PO DAILY 09/29/24 09/29/24 History Sennosides/Docusate Sodium [Senna 1 tab PO BID 09/29/24 09/29/24 History Plus 8.6-50 mg Tablet] metFORMIN HCL 250 mg PO BID 09/29/24 09/29/24 History methocarbamoL [Robaxin-750] 750 mg PO Q6H PRN 09/29/24 09/29/24 History polyethylene glycoL 3350 [Miralax] 17 gm PO DAILY PRN 09/29/24 09/29/24 History Allergies Allergy/AdvReac Type Severity Reaction Status Date / Time No Known Allergies Allergy Verified 09/29/24 18:51 Physical Exam Vitals: Vital Signs Temp Pulse Pulse Resp BP BP Pulse Ox 09/30/24 08:00 16 09/30/24 07:00 97.6 F 97 16 100/62 95 09/30/24 02:30 119 H 09/30/24 02:23 98.3 F 119 H 18 105/61 95 09/30/24 00:32 101.5 F H 105 H 20 112/79 95 09/30/24 00:30 99.4 F 09/29/24 23:32 97.7 F 114 H 26 H 117/90 92 L 09/29/24 20:00 80 16 114/70 92 L 09/29/24 18:46 97.5 F L 84 20 106/67 93 L Intake and Output 09/29/24 09/30/24 09/30/24 22:59 06:59 14:59 Output Total 0 Balance 0 Output: Urine 0 Other: Voiding Method Urinal Urinal Weight 127.913 kg 127.913 kg Results 09/29/24 18:58 09/29/24 18:58 Cardiac Enzymes 09/29/24 09/29/24 09/29/24 Range/Units 18:58 18:58 23:48 AST 76 H (17-59) U/L Troponin I <0.012 <0.012 (0.000-0.034) ng/mL 09/30/24 09/30/24 Range/Units 03:35 05:15 AST (17-59) U/L Troponin I <0.012 <0.012 (0.000-0.034) ng/mL Coagulation 09/29/24 Range/Units 18:58 PT 10.7 (10.0-12.5) sec APTT 24.6 (22.0-30.0) sec Lipids 09/30/24 Range/Units 05:12 Triglycerides 65.20 (0.00-149.00) mg/dL Cholesterol 87.00 (0.00-200.00) mg/dL HDL Cholesterol 49.50 (40.00-60.00) mg/dL Cholesterol/HDL Ratio 1.76 Ratio CBC 09/29/24 Range/Units 18:58 WBC 9.4 (3.8-10.6) k/uL RBC 4.76 (4.30-5.90) m/uL Hgb 14.0 (13.0-17.5) gm/dL Hct 41.9 (39.0-53.0) % Plt Count 200 (150-450) k/uL Comprehensive Metabolic Panel 09/29/24 Range/Units 18:58 Sodium 138 (137-145) mmol/L Potassium 4.0 (3.5-5.1) mmol/L Chloride 102 (98-107) mmol/L Carbon Dioxide 23 (22-30) mmol/L BUN 13 (9-20) mg/dL Creatinine 0.55 L (0.66-1.25) mg/dL Glucose 170 H (74-99) mg/dL Calcium 8.9 (8.4-10.2) mg/dL AST 76 H (17-59) U/L ALT 33 (4-49) U/L Alkaline Phosphatase 143 H (38-126) U/L Total Protein 7.0 (6.3-8.2) g/dL Albumin 3.9 (3.5-5.0) g/dL Current Medications Generic Name Dose Route Start Last Admin Trade Name Freq PRN Reason Stop Dose Admin Acetaminophen 650 mg 09/30/24 01:19 09/30/24 01:24 Acetaminophen Tab 325 Mg Tab PO 650 mg Q6HR PRN Administration Fever and/ or Pain Apixaban 5 mg 09/29/24 21:00 09/30/24 09:45 Apixaban 5 Mg Tab PO 5 mg BID STEVE Administration Protocol Aspirin 325 mg 09/30/24 09:00 09/30/24 09:43 Aspirin 325 Mg Tab PO 325 mg DAILY STEVE Administration Atorvastatin Calcium 40 mg 09/30/24 09:00 09/30/24 09:44 Atorvastatin 40 Mg Tab PO 40 mg DAILY STEVE Administration Cyanocobalamin 1,000 mcg 09/30/24 09:00 09/30/24 09:43 Cyanocobalamin 500 Mcg Tab PO 1,000 mcg DAILY STEVE Administration Duloxetine HCl 60 mg 09/30/24 09:00 09/30/24 09:44 Duloxetine Hcl 60 Mg Capsule.Dr PO 60 mg DAILY [facility] Administration Ergocalciferol 1,250 mcg 10/04/24 09:00 Ergocalciferol 1,250 Mcg (50,000 Iu) Capsule PO [facility] Folic Acid 1 mg 09/30/24 09:00 09/30/24 09:44 Folic Acid 1 Mg Tab PO 1 mg DAILY [facility] Administration Sodium Chloride 1,000 mls @ 60 mls/hr 09/30/24 03:30 09/30/24 03:27 Saline 0.9% IV 60 mls/hr .[id number] STEVE Administration Losartan Potassium 25 mg 09/30/24 09:00 09/30/24 09:43 Losartan 25 Mg Tab PO 25 mg DAILY [facility] Administration Methocarbamol 750 mg 09/29/24 20:56 Methocarbamol 750 Mg Tab PO Q6H PRN Muscle Spasm Metoprolol Succinate 25 mg 09/30/24 09:00 09/30/24 09:44 Metoprolol Succinate (Er) 25 Mg Tab.Er.24h PO 25 mg DAILY [facility] Administration Nitroglycerin 0.4 mg 09/29/24 20:55 09/30/24 00:02 Nitroglycerin Sl Tabs 0.4 Mg Tab SUBLINGUAL 0.4 mg Q5M PRN Administration Chest Pain Nitroglycerin 1 inch 09/30/24 00:00 09/30/24 05:59 Nitroglycerin Oint 1 Inch/Gm Packet TOPICAL Not Given Q6HR [facility] Ondansetron HCl 4 mg 09/29/24 20:56 09/29/24 21:05 Ondansetron Odt 4 Mg Tab PO 4 mg Q6H PRN Administration Nausea Polyethylene Glycol 17 gm 09/29/24 20:56 Polyethylene Glycol 3350 17 Gm Powd.Pack PO DAILY PRN Constipation Senna/Docusate Sodium 1 each 09/29/24 21:00 09/30/24 09:44 Sennosides-Docusate Sodium 1 Each Tab PO 1 each BID STEVE Administration Sodium Chloride 10 ml 09/29/24 21:00 09/30/24 09:44 Sodium Chloride 0.9% Flush 10 Ml Syringe IV 10 ml BID STEVE Administration Intake and Output 09/29/24 09/30/24 09/30/24 22:59 06:59 14:59 Output Total 0 Balance 0 Output: Urine 0 Other: Voiding Method Urinal Urinal Weight 127.913 kg 127.913 kg 09/29/24 18:58 09/29/24 18:58
[2024-09-30] MEDS: TAMSULOSIN 0.4 MG CAP.ER.24H PO STA (18:24)
--- NOTE | 2024-10-01 06:59 | P.HPIM ---
History of Present Illness H&P Date: 09/30/24 This is a very pleasant 69-year-old male who presented to the emergency department with feelings of chest pain and epigastric pain that had been radiating up and around the left shoulder and to the back. Patient reports this has been ongoing for 3 days and intermittent although last night the pain became too intense and called EMS and is here for further evaluation. Patient does follow with Dr. Steen in the outpatient setting with a past medical history of blood disorder, musculoskeletal disorder, osteoarthritis, previous PE, Charcot- disease and wears bilateral braces, chronic back pain and recent orthopedic surgery a few months ago. EKG showed normal sinus rhythm, chest x-ray showing no acute process, and troponins x 4 were negative. Labs reviewed within normal white count and hemoglobin stable at 14, platelets 200, D-dimer elevated at 2.27, sodium 138 with a potassium of 4.0, creatinine 0.55, magnesium 2.2, AST mildly elevated at 76 and BNP 35 virology testing done including COVID, influenza, RSV were all negative. Amylase and lipase within normal limits. Patient admitted with chest pain evaluation with cardiology for consult. REVIEW OF SYSTEMS: CONSTITUTIONAL: No fever, no malaise, no fatigue. HEENT: No recent visual problems or hearing problems. Denied any sore throat. CARDIOVASCULAR: Reports previous chest pain that has resolved, orthopnea, PND, no palpitations, no syncope. PULMONARY: No shortness of breath, no cough, no hemoptysis. GASTROINTESTINAL: No diarrhea, occasional nausea, no vomiting, no abdominal pain. NEUROLOGICAL: No headaches, no weakness, no numbness. HEMATOLOGICAL: Denies any bleeding or petechiae. GENITOURINARY: Denies any burning micturition, frequency, or urgency. MUSCULOSKELETAL/RHEUMATOLOGICAL: Denies any joint pain, swelling, or any muscle pain. ENDOCRINE: Denies any polyuria or polydipsia. The rest of the 14-point review of systems is negative. PHYSICAL EXAMINATION: GENERAL: The patient is alert and oriented x3, . Well developed, well nourished. Morbidly obese HEENT: Pupils are round and equally reacting to light. EOMI. No scleral icterus. No conjunctival pallor. Normocephalic, atraumatic. No pharyngeal erythema. No thyromegaly. CARDIOVASCULAR: S1 and S2 muffled PULMONARY: Diminished breath sounds bilaterally otherwise chest is clear to auscultation, no wheezing or crackles. ABDOMEN: Soft, obese, nontender, nondistended, normoactive bowel sounds. No palpable organomegaly. MUSCULOSKELETAL: No joint swelling or deformity. EXTREMITIES: No cyanosis, clubbing, or pedal edema. NEUROLOGICAL: Gross neurological examination did not reveal any focal deficits. SKIN: No rashes. Assessment: Chest pain, ruled out ACS, troponins x 4 negative Elevated D-dimer, PE ruled out Cholelithiasis noted on imaging Nonobstructing right renal stone noted on imaging Urinary retention requiring straight catheterization Nausea with abdominal discomfort possibly secondary to cholelithiasis Obesity with a BMI 38.2 History of Charcot's disease wears bilateral braces History of PE Osteoarthritis History of recent neck and back surgery 3 months ago at [place] GI prophylaxis DVT prophylaxis Full code Plan: Patient was admitted initially with chest pain that had been radiating and epigastric associated with diaphoresis and some nausea. Cardiology evaluated the patient and ACS ruled out deeming more likely due to other causes. Patient does follow with Dr. Goldstein outpatient and recent cardiac catheterization had been normal in 2018. Patient was keen on going home reported to feeling improved and was working on discharge home although was then noted to have urinary retention and noticed he had not urinated in over 24 hours with bladder scan over 700 requiring straight catheterization. Flomax was initiated and instructed to monitor intake and output closely. Continue with straight catheterization and if requiring more than 2, then indwelling Cummings catheter. Urology on consult and pending. Apprec iate input and recommendations Patient became diaphoretic and nauseated. Patient made n.p.o. except medications and occasional ice chips or sips of water Will consult general surgery and appreciate input and recommendations regarding cholelithiasis Follow-up on repeat labs and replace electrolytes per protocol Recommend sitting up in the chair The impression and plan of care Due to multiple complex medical issues, overall prognosis is guarded The impression and plan of care has been dictated by Carol Lawrence, Nurse Practitioner as directed. Dr. Patrick MD I have performed a history and examination and MDM of this patient, discussed the same with the dictator, and agree with the dictator's assessment and plan as written ,documented as a scribe. Based on total visit time, I have performed more than 50% of the visit. 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 Goldstein's H&P. History of Any Multi-Drug Resistant Organisms: None Reported Past Surgical History: Back Surgery, Hernia Repair, Orthopedic Surgery Additional Past Surgical History / Comment(s): cynthia ankles and rt knee surgery with hardware, neck fusion, back surgery with 4 titanium rods, hernia repair 12/15/18, feet surgery. Past Anesthesia/Blood Transfusion Reactions: Previous Problems w/ Anesthesia, Motion Sickness Additional Past Anesthesia/Blood Transfusion Reaction / Comment(s): Difficulty waking up with one of his surgeries. Past Psychological History: Depression Smoking Status: Never smoker Past Alcohol Use History: None Reported Past Drug Use History: None Reported - Past Family History Father Family Medical History: Cancer Additional Family Medical History / Comment(s): prostate Mother Family Medical History: Dementia Additional Family Medical History / Comment(s): still alive Medications and Allergies Home Medications Medication Instructions Recorded Confirmed Type Apixaban [Eliquis] 5 mg PO BID 09/20/22 09/29/24 History Losartan [Cozaar] 25 mg PO DAILY 09/20/22 09/29/24 History Cyanocobalamin (Vitamin B-12) 1,000 mcg PO DAILY 09/29/24 09/29/24 History [Vitamin B-12] DULoxetine HCL [Cymbalta] 60 mg PO DAILY 09/29/24 09/29/24 History Ergocalciferol (Vitamin D2) 1,250 mcg PO TU 09/29/24 09/29/24 History [Drisdol (50,000 Iu)] Folic Acid 1 mg PO DAILY 09/29/24 09/29/24 History Metoprolol Succinate [Metoprolol 25 mg PO DAILY 09/29/24 09/29/24 History Succinate ER] Ondansetron Odt [Zofran ODT] 4 mg PO Q6H PRN 09/29/24 09/29/24 History Rosuvastatin [Crestor] 20 mg PO DAILY 09/29/24 09/29/24 History Sennosides/Docusate Sodium [Senna 1 tab PO BID 09/29/24 09/29/24 History Plus 8.6-50 mg Tablet] metFORMIN HCL 250 mg PO BID 09/29/24 09/29/24 History methocarbamoL [Robaxin-750] 750 mg PO Q6H PRN 09/29/24 09/29/24 History polyethylene glycoL 3350 [Miralax] 17 gm PO DAILY PRN 09/29/24 09/29/24 History Acetaminophen Tab [Tylenol] 650 mg PO Q6HR PRN tab 09/30/24 Rx Amoxic-Pot Clav 875-125Mg 1 tab PO Q12HR 4 Days #8 tab 09/30/24 Rx [Augmentin 875-125] Nitroglycerin Sl Tabs [Nitrostat] 0.4 mg SUBLINGUAL Q5M PRN #20 tab 09/30/24 Rx Allergies Allergy/AdvReac Type Severity Reaction Status Date / Time No Known Allergies Allergy Verified 09/29/24 18:51 Physical Exam Vitals: Vital Signs Temp Pulse Pulse Resp BP BP BP 09/30/24 14:39 87 18 102/68 09/30/24 14:01 97.6 F 70 17 99/62 09/30/24 08:00 16 09/30/24 07:00 97.6 F 97 16 100/62 09/30/24 02:30 119 H 09/30/24 02:23 98.3 F 119 H 18 105/61 09/30/24 00:32 101.5 F H 105 H 20 112/79 09/30/24 00:30 99.4 F 09/29/24 23:32 97.7 F 114 H 26 H 117/90 09/29/24 20:00 80 16 114/70 09/29/24 18:46 97.5 F L 84 20 106/67 Pulse Ox 09/30/24 14:39 95 09/30/24 14:01 99 09/30/24 08:00 09/30/24 07:00 95 09/30/24 02:30 09/30/24 02:23 95 09/30/24 00:32 95 09/30/24 00:30 09/29/24 23:32 92 L 09/29/24 20:00 92 L 09/29/24 18:46 93 L Intake and Output 09/30/24 09/30/2409/30/25 06:59 14:59 22:59 Output Total 0 Balance 0 Output: Urine 0 Other: Voiding Method Urinal Urinal # Voids 2 Weight 127.913 kg Results CBC & Chem 7: 09/29/24 18:58 09/29/24 18:58 Labs: Abnormal Lab Results - Last 24 Hours (Table) 09/29/24 09/29/24 Range/Units 18:58 18:58 D-Dimer 2.27 H (<0.60) mg/L FEU Creatinine 0.55 L (0.66-1.25) mg/dL Glucose 170 H (74-99) mg/dL AST 76 H (17-59) U/L Alkaline Phosphatase 143 H (38-126) U/L Thrombosis Risk Factor Assmnt - Choose All That Apply Any of the Below Risk Factors Present?: Yes Each Factor Represents 1 point: Obesity (BMI >25) Other Risk Factors: Yes Each Risk Factor Represents 2 Points: Age 61-74 years Other congenital or acquired thrombophilia - If yes, enter type in comment: No Thrombosis Risk Factor Assessment Total Risk Factor Score: 3 Thrombosis Risk Factor Assessment Level: Moderate Risk Assessment and Plan Time with Patient: Greater than 30
--- NOTE | 2024-10-01 09:24 | P.GSCN ---
History of Present Illness Consult date: 10/01/24 Reason for Consult: Right upper quadrant pain History of present illness: This is a 69-year-old male who had several attacks of right upper quadrant pain this week. Patient states last Thursday and he had complaints of right quadrant pain was related to his back. Patient's ultrasound shows evidence of cholelithiasis. 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 Goldstein's H&P. History of Any Multi-Drug Resistant Organisms: None Reported Past Surgical History: Back Surgery, Hernia Repair, Orthopedic Surgery Additional Past Surgical History / Comment(s): cynthia ankles and rt knee surgery with hardware, neck fusion, back surgery with 4 titanium rods, hernia repair 12/15/18, feet surgery. Past Anesthesia/Blood Transfusion Reactions: Previous Problems w/ Anesthesia, Motion Sickness Additional Past Anesthesia/Blood Transfusion Reaction / Comm: Difficulty waking up with one of his surgeries. Past Psychological History: Depression Smoking Status: Never smoker Past Alcohol Use History: None Reported Past Drug Use History: None Reported - Past Family History Father Family Medical History: Cancer Additional Family Medical History / Comment(s): prostate Mother Family Medical History: Dementia Additional Family Medical History / Comment(s): still alive Medications and Allergies Home Medications Medication Instructions Recorded Confirmed Type Apixaban [Eliquis] 5 mg PO BID 09/20/22 09/29/24 History Losartan [Cozaar] 25 mg PO DAILY 09/20/22 09/29/24 History Cyanocobalamin (Vitamin B-12) 1,000 mcg PO DAILY 09/29/24 09/29/24 History [Vitamin B-12] DULoxetine HCL [Cymbalta] 60 mg PO DAILY 09/29/24 09/29/24 History Ergocalciferol (Vitamin D2) 1,250 mcg PO TU 09/29/24 09/29/24 History [Drisdol (50,000 Iu)] Folic Acid 1 mg PO DAILY 09/29/24 09/29/24 History Metoprolol Succinate [Metoprolol 25 mg PO DAILY 09/29/24 09/29/24 History Succinate ER] Ondansetron Odt [Zofran ODT] 4 mg PO Q6H PRN 09/29/24 09/29/24 History Rosuvastatin [Crestor] 20 mg PO DAILY 09/29/24 09/29/24 History Sennosides/Docusate Sodium [Senna 1 tab PO BID 09/29/24 09/29/24 History Plus 8.6-50 mg Tablet] metFORMIN HCL 250 mg PO BID 09/29/24 09/29/24 History methocarbamoL [Robaxin-750] 750 mg PO Q6H PRN 09/29/24 09/29/24 History polyethylene glycoL 3350 [Miralax] 17 gm PO DAILY PRN 09/29/24 09/29/24 History Acetaminophen Tab [Tylenol] 650 mg PO Q6HR PRN tab 09/30/24 Rx Amoxic-Pot Clav 875-125Mg 1 tab PO Q12HR 4 Days #8 tab 09/30/24 Rx [Augmentin 875-125] Nitroglycerin Sl Tabs [Nitrostat] 0.4 mg SUBLINGUAL Q5M PRN #20 tab 09/30/24 Rx Allergies Allergy/AdvReac Type Severity Reaction Status Date / Time No Known Allergies Allergy Verified 09/29/24 18:51 Surgical - Exam Vital Signs Temp Pulse Resp BP Pulse Ox 97.5 F L 84 20 106/67 93 L 09/29/24 18:46 09/29/24 18:46 09/29/24 18:46 09/29/24 18:46 09/29/24 18:46 - General well developed, well nourished, no distress - Eyes PERRL - ENT normal pinna - Neck no masses - Respiratory normal expansion - Cardiovascular Rhythm: regular - Abdomen Abdomen: soft, non tender Results - Labs 09/29/24 18:58 09/29/24 18:58 Assessment and Plan Plan: Symptomatic cholelithiasis. Patient be scheduled for laparoscopic cholecystectomy in the a.m.
[2024-10-01 10:13] LABS: Basophils # (A) 0.03 X 10*3/uL (0.00-0.10); Basophils % (A) 0.6 %; Eosinophils # (A) 0.06 X 10*3/uL (0.04-0.35); Eosinophils % (A) 1.1 %; HCT 40.2 % (39.6-50.0); HGB 12.9 g/dL (13.0-17.0); Lymphocytes # (A) 0.41 X 10*3/uL (0.90-5.00); Lymphocytes % (A) 7.6 %; MCH 28.4 pg (27.0-32.0); MCHC 32.1 g/dL (32.0-37.0); MCV 88.4 FL (80.0-97.0); Mean Platelet Volume 9.8 FL (9.5-12.2); Monocytes # (A) 0.36 X 10*3/uL (0.20-1.00); Monocytes % (A) 6.6 %; NRBC Per 100 WBC 0 X 10*3/uL (0.00-0.01); Neutrophils # (A) 4.52 X 10*3/uL (1.80-7.70); Neutrophils % (A) 83.4 %; Platelet Count 127 X 10*3/uL (140-440); RBC 4.55 X 10*6/uL (4.40-5.60); RDW 14.6 % (11.5-14.5); WBC 5.42 X 10*3/uL (4.50-10.00)
[2024-10-01] MEDS: TAMSULOSIN 0.4 MG CAP.ER.24H PO SCH (10:27)
[2024-10-01 10:33] LABS: Amorphous Sediment,Urine Rare /hpf; Appearance,Urine Turbid (Clear); Bilirubin,Urine 1+ (Negative); Blood,Urine Large (Negative); Color,Urine Dark Brown; Glucose,Urine (UA) Negative (Negative); Ketones,Urine Negative (Negative); Leukocyte Esterase,Urine Negative (Negative); Mucus,Urine Few /hpf; Nitrite,Urine Negative (Negative); PH, Urine 5.5 (5.0-8.0); Protein,Urine 1+ (Negative); RBC,Urine >182 /hpf (0-5); Specific Gravity,Urine 1.025 (1.001-1.035); WBC,Urine 16 /hpf (0-5)
[2024-10-01 12:28] LABS: ALT 181 U/L (10-49); AST 172 U/L (14-35); Albumin 3.4 g/dL (3.8-4.9); Albumin/Globulin Ratio 1.21 Ratio (1.60-3.17); Alkaline Phosphatase 163 U/L (41-126); Calcium 8.3 mg/dL (8.7-10.3); Carbon Dioxide 23.8 mmol/L (21.6-31.8); Chloride 108 mmol/L (96-109); Globulin 2.8 g/dL (1.6-3.3); Glucose 147 mg/dL (70-110); Potassium 3.8 mmol/L (3.5-5.5); Sodium 143 mmol/L (135-145); Total Bilirubin 1.8 mg/dL (0.3-1.2); Total Protein 6.2 g/dL (6.2-8.2)
[2024-10-01] MEDS: PIPERACILLIN-TAZOBACTAM 3.375 GM in SODIUM CHLORIDE 0.9% 100 ML IVPB SCH (13:28)
--- NOTE | 2024-10-01 16:45 | P.GSCN ---
History of Present Illness Consult date: 10/01/24 Reason for Consult: Urinary retention Requesting physician: Laura Nguyen History of present illness: The patient is a 69-year-old male with an unremarkable urologic history. Beginning in September 28, 2024 he began to experience difficulty voiding. He states that he drinks a lot of fluids and typically voids large volumes. He is somewhat vague in describing his voiding symptoms. He specifically declines any history of dysuria, hematuria, or urinary incontinence. He was hospitalized with epigastric and chest pain, and is scheduled to undergo a cholecystectomy tomorrow. Yesterday evening, bladder scan showed that he was in urinary retention and he was straight catheterized for volumes up to 1 L. It is notewo rthy that he did not experience any discomfort at that time. 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 Goldstein's H&P. History of Any Multi-Drug Resistant Organisms: None Reported Past Surgical History: Back Surgery, Hernia Repair, Orthopedic Surgery Additional Past Surgical History / Comment(s): cynthia ankles and rt knee surgery with hardware, neck fusion, back surgery with 4 titanium rods, hernia repair 12/15/18, feet surgery. Past Anesthesia/Blood Transfusion Reactions: Previous Problems w/ Anesthesia, Motion Sickness Additional Past Anesthesia/Blood Transfusion Reaction / Comm: Difficulty waking up with one of his surgeries. Past Psychological History: Depression Smoking Status: Never smoker Past Alcohol Use History: None Reported Past Drug Use History: None Reported - Past Family History Father Family Medical History: Cancer Additional Family Medical History / Comment(s): prostate Mother Family Medical History: Dementia Additional Family Medical History / Comment(s): still alive Medications and Allergies Home Medications Medication Instructions Recorded Confirmed Type Apixaban [Eliquis] 5 mg PO BID 09/20/22 09/29/24 History Losartan [Cozaar] 25 mg PO DAILY 09/20/22 09/29/24 History Cyanocobalamin (Vitamin B-12) 1,000 mcg PO DAILY 09/29/24 09/29/24 History [Vitamin B-12] DULoxetine HCL [Cymbalta] 60 mg PO DAILY 09/29/24 09/29/24 History Ergocalciferol (Vitamin D2) 1,250 mcg PO TU 09/29/24 09/29/24 History [Drisdol (50,000 Iu)] Folic Acid 1 mg PO DAILY 09/29/24 09/29/24 History Metoprolol Succinate [Metoprolol 25 mg PO DAILY 09/29/24 09/29/24 History Succinate ER] Ondansetron Odt [Zofran ODT] 4 mg PO Q6H PRN 09/29/24 09/29/24 History Rosuvastatin [Crestor] 20 mg PO DAILY 09/29/24 09/29/24 History Sennosides/Docusate Sodium [Senna 1 tab PO BID 09/29/24 09/29/24 History Plus 8.6-50 mg Tablet] metFORMIN HCL 250 mg PO BID 09/29/24 09/29/24 History methocarbamoL [Robaxin-750] 750 mg PO Q6H PRN 09/29/24 09/29/24 History polyethylene glycoL 3350 [Miralax] 17 gm PO DAILY PRN 09/29/24 09/29/24 History Acetaminophen Tab [Tylenol] 650 mg PO Q6HR PRN tab 09/30/24 Rx Amoxic-Pot Clav 875-125Mg 1 tab PO Q12HR 4 Days #8 tab 09/30/24 Rx [Augmentin 875-125] Nitroglycerin Sl Tabs [Nitrostat] 0.4 mg SUBLINGUAL Q5M PRN #20 tab 09/30/24 Rx Allergies Allergy/AdvReac Type Severity Reaction Status Date / Time No Known Allergies Allergy Verified 09/29/24 18:51 Surgical - Exam Vital Signs Temp Pulse Resp BP Pulse Ox 97.5 F L 84 20 106/67 93 L 09/29/24 18:46 09/29/24 18:46 09/29/24 18:46 09/29/24 18:46 09/29/24 18:46 - General well developed, well nourished, no distress - Respiratory normal respiratory effort - Genitourinary normal penis with no external lesions, testicles non-tender - Rectum Rectum: normal sphincter tone, no masses, other (The prostate is at least moderately enlarged (difficult to palpate base) and smooth.) - Psychiatric oriented to time, oriented to person, oriented to place, speech is normal, memory intact Results - Labs 10/01/24 05:53 10/01/24 05:53 Abnormal Lab Results - Last 24 Hours (Table) 10/01/24 10/01/24 Range/Units 05:53 10:10 Hgb 12.9 L (13.0-17.0) g/dL RDW 14.6 H (11.5-14.5) % Plt Count 127 L (140-440) X 10*3/uL Lymphocytes # 0.41 L (0.90-5.00) X 10*3/uL Urine Protein 1+ H (Negative) Urine Blood Large H (Negative) Urine Bilirubin 1+ H (Negative) Urine RBC >182 H (0-5) /hpf Urine WBC 16 H (0-5) /hpf Amorphous Sediment Rare H (None) /hpf Urine Mucus Few H (None) /hpf Assessment and Plan (1) Retention of urine, unspecified Current Visit: Yes Status: Acute Code(s): R33.9 - RETENTION OF URINE, UNSPECIFIED SNOMED Code(s): 774450575 Plan: Given the degree of bladder distention, and the fact that the patient did not experience any discomfort associated with this, I have recommended that the Cummings catheter remain in place for 1 week. He understands that he will be discharged home with the catheter. A prescription was sent for tamsulosin, and the patient and his were instructed to remove the catheter in the evening of October 06, 2024. He will follow-up with me in the office the following day. If the urinary retention persists, the Cummings catheter will be replaced and he will be scheduled to undergo urodynamic testing and cystoscopy for further evaluation. Please notify me if I can be of any further assistance. Time with Patient: Greater than 30
[2024-10-02] MEDS: LIDOCAINE 1%-EPI 1:100,000 20 ML VIAL SQ ONE ×2 (08:30→10:07)
[2024-10-02] MEDS: SODIUM CHLORIDE 0.9% 50 ML with ceFAZolin 2,000 MG IV ONE (09:41)
[2024-10-02] MEDS ORDERED: ETOMIDATE 2 MG/ML 10 ML VIAL ONE (09:41)
[2024-10-02] MEDS ORDERED: SUCCINYLCHOLINE CHLORIDE 200 MG/10 ML VIAL IV ONE (09:41)
[2024-10-02] MEDS ORDERED: LIDOCAINE 1% INJ 10MG/ML (20 ML MDV) ONE (09:41)
[2024-10-02] MEDS ORDERED: ROCURONIUM 10 MG/ML (5 ML VIAL) IV ONE (09:41)
[2024-10-02] MEDS ORDERED: GLYCOPYRROLATE 0.2 MG/ML 2 ML VIAL ONE (09:41)
[2024-10-02] MEDS ORDERED: KETAMINE HCL IN 0.9 % NACL 50 MG/5 ML SYRINGE ONE (09:41)
[2024-10-02] MEDS: SODIUM CHLORIDE 0.9% 1,000 ML IV ONE (09:41)
[2024-10-02] MEDS ORDERED: MIDAZOLAM 2 MG/2 ML VIAL ONE (09:41)
[2024-10-02] MEDS ORDERED: NEOSTIGMINE 1 MG/ML 10 ML VIAL ONE (09:41)
[2024-10-02] MEDS ORDERED: fentaNYL (PF) 50 MCG/ML 2 ML AMP ONE (09:41)
[2024-10-02] MEDS: LACTATED RINGERS 1,000 ML IV ONE (10:09)
--- NOTE | 2024-10-02 10:40 | P.OP ---
Date of Procedure: 10/02/24 Preoperative Diagnosis: Cholecystitis Postoperative Diagnosis: Cholecystitis Procedure(s) Performed: Laparoscopic cholecystectomy Anesthesia: JACOB Surgeon: Ashish Alejandre Estimated Blood Loss (ml): 25 Pathology: other (Gallbladder) Condition: stable Disposition: PACU Description of Procedure: The patient was placed on the operating table. The patient received a general endotracheal tube anesthesia. The patients abdomen was prepped and draped in the usual sterile fashion. Through an infraumbilical stab incision, the fascia of the anterior abdominal wall was grasped with a pair of Kochers and then the Veress needle was placed in the peritoneal cavity. Position of the Veress needle was confirmed with positive drop test. The abdomen was then insufflated. After adequate insufflation, the 10 mm trocar was placed in the peritoneal cavity. Following this the laparoscope was placed in the peritoneal cavity. The patient was placed in the head-up, right side up position and then a 5 mm trocar was placed in the right lateral and right subcostal position under direct visualization. A 8 mm trocar was placed in the epigastric position. The gallbladder was grasped in the fundus and infundibulum. Traction on the gallbladder was placed in the lateral and the cephalad positions. The triangle of Calot was visualized.. The cystic duct was bluntly dissected until the union of the cystic duct and common bile duct was seen. A critical view of safety was achieved. The cystic duct was then divided and sealed with the Harmonic scissors. A PDS Endoloop was then placed throughout the cystic duct stump. The cystic artery divided and sealed with the Harmonic scissors. The gallbladder was then removed from the liver bed using Harmonic scissors. The gallbladder was then extracted through the epigastric port site. Operative field was checked for any bleeding spots and Harmonic scissors was used to coagulate the liver bed. The abdomen was irrigated. The trocars were removed. The skin was closed using interrupted 3-0 Vicryl suture. Dermabond dressing were applied. The patient tolerated the procedure well.
[2024-10-02] MEDS ORDERED: HYDROmorphone 1 MG/ML 1 ML SYRINGE IVP PRN (10:41)
[2024-10-02] MEDS ORDERED: HYDROcodone/APAP 7.5-325MG 1 EACH TAB PO PRN (10:41)
--- NOTE | 2024-10-02 23:06 | PN ---
PROGRESS NOTE DATE OF SERVICE: 10/01/2024 SUBJECTIVE: This is a 69-year-old gentleman admitted with chest pain, also had acute cholelithiasis. The patient was evaluated by Surgery. No chest pain. No palpitations. No fever. OBJECTIVE: VITAL SIGNS: Noted. HEENT: Conjunctivae normal. NECK: No jugular venous distention. CARDIOVASCULAR: S1, S2. RESPIRATIONS: Breath sounds diminished at the bases. ABDOMEN: Soft, mild diffuse discomfort in the upper abdomen. LABORATORY DATA: Noted. ASSESSMENT: 1. Acute cholelithiasis and cholecystitis. 2. Urinary retention. 3. Obesity. 4. Charcot disease. 5. Multiple complex medical issues. RECOMMENDATIONS: Recommend to continue current management and continue symptomatic treatment. Surgery, Urology evaluations. Guarded prognosis. Further recommendations to follow. MMODL / IJN: [id number] /
--- NOTE | 2024-10-03 04:21 | PN ---
PROGRESS NOTE DATE OF SERVICE: 10/02/2024 SUBJECTIVE: This is a 69-year-old gentleman, who was admitted with chest pain, also had cholelithiasis. The patient had a cholecystectomy. The patient is being closely monitored. No chest pain. No palpitation. OBJECTIVE: VITAL SIGNS: Pulse is 95, blood pressure 107/59, respirations 18. CHEST: A few scattered rhonchi and crackles. ABDOMEN: Soft. NERVOUS SYSTEM: Nonfocal. LABORATORY DATA: Reviewed. ASSESSMENT: 1. Acute cholecystitis, status post laparoscopic cholecystectomy. 2. Cholelithiasis. 3. Urinary retention. 4. Multiple complex medical issues. RECOMMENDATIONS: Recommend to continue current management and continue symptomatic treatment. Otherwise, closely follow with Surgery and multiple consultants. Guarded prognosis. Further recommendations to follow. MMODL / IJN: [id number] /
[2024-10-03 08:41] LABS: ALT 85 U/L (10-49); AST 135 U/L (14-35); Albumin/Globulin Ratio 1.11 Ratio (1.60-3.17); Alkaline Phosphatase 134 U/L (41-126); BUN/Creat Ratio 10.83 Ratio (12.00-20.00); Blood Urea Nitrogen 6.5 mg/dL (9.0-27.0); Carbon Dioxide 25.2 mmol/L (21.6-31.8); Chloride 103 mmol/L (96-109); Globulin 2.7 g/dL (1.6-3.3); Glucose 141 mg/dL (70-110); Potassium 3.1 mmol/L (3.5-5.5); Sodium 138 mmol/L (135-145); Total Protein 5.7 g/dL (6.2-8.2)
[2024-10-03 10:10] LABS: Basophils # (A) 0.03 X 10*3/uL (0.00-0.10); Basophils % (A) 0.6 %; Eosinophils # (A) 0.04 X 10*3/uL (0.04-0.35); Eosinophils % (A) 0.9 %; HCT 36.4 % (39.6-50.0); HGB 11.6 g/dL (13.0-17.0); Lymphocytes # (A) 0.63 X 10*3/uL (0.90-5.00); Lymphocytes % (A) 13.6 %; MCHC 31.9 g/dL (32.0-37.0); MCV 87.7 FL (80.0-97.0); Mean Platelet Volume 10.9 FL (9.5-12.2); Monocytes # (A) 0.79 X 10*3/uL (0.20-1.00); NRBC Per 100 WBC 0 X 10*3/uL (0.00-0.01); Neutrophils # (A) 3.14 X 10*3/uL (1.80-7.70); Neutrophils % (A) 67.7 %; Platelet Count 124 X 10*3/uL (140-440); RBC 4.15 X 10*6/uL (4.40-5.60); RDW 14.4 % (11.5-14.5); WBC 4.64 X 10*3/uL (4.50-10.00)
[2024-10-03] MEDS: POTASSIUM CHLORIDE ER 20 MEQ TAB.ER PO STA (12:52)
[2024-10-03 14:21] VITALS: BP 105/64; PULSE 94; RESP 17; TEMP 97.8
--- NOTE | 2024-10-03 15:17 | P.PN ---
Subjective Progress Note Date: 10/03/24 SURGICAL PROGRESS NOTE CHIEF COMPLAINT: Cholecystitis HISTORY OF PRESENT ILLNESS: Patient is postop day #1 status post laparoscopic cholecystectomy. Patient denies any nausea or vomiting. He is having flatus. He is sitting at bedside chair. He did have a temp of 102.5 last night. Currently afebrile. WBC 4.64 Hgb 11.6 platelets 124 sodium is 130 potassium 3.1 creatinine 0.6 total bilirubin is normalized at 1.0 AST is down from 1 72-1 35 ALT 181 down to 85 alk phos 163 down to 134 PHYSICAL EXAM: VITAL SIGNS: Reviewed. GENERAL: Well-developed in no acute distress. ABDOMEN: Soft. Nondistended. Nontender. Incision sites clean dry and intact NEUROLOGIC: Alert and oriented. Cranial nerves II through XII grossly intact. ASSESSMENT: 1. Cholecystitis status post laparoscopic cholecystectomy 2. Fever likely due to atelectasis 3. Urinary retention 4. Back surgery 3 months ago PLAN: -Patient can be discharge from surgical standpoint -Recommend to resume Eliquis on 10/05/2024 -Encourage patient to increase activity level -Encourage patient to use incentive spirometer -Urinary retention managed per urology [facility] Human Resources Manager note has been reviewed by physician. Signing provider agrees with the documented findings, assessment, and plan of care. Objective - Vital Signs Vital signs: Vital Signs Temp 97.5 F L 10/03/24 07:00 Pulse 89 10/03/24 07:00 Resp 19 10/03/24 07:00 BP 116/75 10/03/24 07:00 Pulse Ox 93 L 10/03/24 07:00 FiO2 Intake & Output 10/02/24 10/03/24 10/03/24 18:59 06:59 18:59 Intake Total 1250 236 Output Total 675 2150 Balance 575 -2150 236 Intake: IV 1250 Oral 236 Output: Urine 650 2150 Estimated Blood Loss 25 Other: Voiding Method Indwelling Catheter Indwelling Catheter - Labs CBC & Chem 7: 10/03/24 05:11 10/03/24 05:11 Labs: Abnormal Lab Results - Last 24 Hours (Table) 10/03/24 10/03/24 Range/Units 05:11 05:11 RBC 4.15 L (4.40-5.60) X 10*6/uL Hgb 11.6 L (13.0-17.0) g/dL Hct 36.4 L (39.6-50.0) % MCHC 31.9 L (32.0-37.0) g/dL Plt Count 124 L (140-440) X 10*3/uL Lymphocytes # 0.63 L (0.90-5.00) X 10*3/uL Potassium 3.1 L (3.5-5.5) mmol/L BUN 6.5 L (9.0-27.0) mg/dL BUN/Creatinine Ratio 10.83 L (12.00-20.00) Ratio Glucose 141 H (70-110) mg/dL Calcium 8.0 L (8.7-10.3) mg/dL AST 135 H (14-35) U/L ALT 85 H (10-49) U/L Alkaline Phosphatase 134 H (41-126) U/L Total Protein 5.7 L (6.2-8.2) g/dL Albumin 3.0 L (3.8-4.9) g/dL Albumin/Globulin Ratio 1.11 L (1.60-3.17) Ratio Microbiology - Last 24 Hours (Table) 10/01/24 10:10 Urine Culture - Final Urine,Voided
[2024-10-04] MEDS ORDERED: ERGOCALCIFEROL 1,250 MCG (50,000 IU) CAPSULE PO SCH (09:00)
--- NOTE | 2024-10-08 22:26 | P.DS ---
Providers Date of admission: 10/03/24 07:18 Expected date of discharge: 10/03/24 Attending physician: Laura Nguyen Consults: 09/30/24 18:14 Consult Physician Routine Consulting Provider: Ashish Alejandre Consult Reason/Comments: gallstones Do you want consulting provider notified?: Yes 09/30/24 18:15 Consult Physician Routine Consulting Provider: Chris Melgoza Consult Reason/Comments: urinary retention Do you want consulting provider notified?: Yes Primary care physician: Demetrius Steen MD Hospital Course: Final diagnosis Chest pain, ruled out ACS, troponins x 4 negative Elevated D-dimer, PE ruled out Cholelithiasis noted on imaging, status post cholecystectomy Nonobstructing right renal stone noted on imaging Urinary retention requiring indwelling Cummings catheter, will continue with indwelling Cummings catheter for 1 week per urology and outpatient follow-up in the clinic Nausea with abdominal discomfort secondary to cholelithiasis Obesity with a BMI 38.2 History of Charcot's disease wears bilateral braces History of PE Osteoarthritis History of recent neck and back surgery 3 months ago at [place] GI prophylaxis DVT prophylaxis Full code Discharge disposition Patient is being discharged in a stable condition with guarded prognosis to home. Patient will follow-up with Dr. Steen in the outpatient setting upon discharge. Patient is to continue with current medications and outpatient follow-up with general surgery as well as cardiology as scheduled. Total time taken is greater than 35 minutes. Hospital course This is a 69-year-old male who was recently admitted with chest pain and epigastric pain being evaluated by cardiology as well as general surgery. Patient noted to have cholelithiasis and began having worsening abdominal pain with nausea and vomiting and evaluated by general surgery and is status post laparoscopic cholecystectomy. Patient also having some urinary retention requiring indwelling Cummings catheter and evaluated by urology recommending continuing with indwelling Cummings catheter on discharge and outpatient follow-up in the clinic in 1 week. Patient will continue a short course of antibiotics on discharge as patient was also noted to have fevers and elevated white count on admission. Patient has been cleared by consultations. Please refer to consultation notes for further HPI. Currently no reports of chest pain, shortness of breath, or palpitations. Patient is afebrile. No reports of nausea or vomiting and patient is tolerating diet. Patient will be discharged home today. Guarded prognosis Physical exam: Gen: This is a 69-year-old male who is awake, alert and oriented x 3, well- developed, elderly appearing, obese HEENT: Head is atraumatic, normocephalic. Pupils equal, round. Sclerae is anicteric. NECK: Supple. No JVD. No lymphadenopathy. No thyromegaly. LUNGS: Diminished breath sounds bilaterally otherwise clear to auscultation. No wheezes or rhonchi. No intercostal retractions. HEART: S1, S2 are muffled ABDOMEN: Soft. Obese bowel sounds are present. No masses. No tenderness. EXTREMITIES: No pedal edema. No calf tenderness. NEUROLOGICAL: Patient is awake, alert and oriented x3. Cranial nerves 2 through 12 are grossly intact. Please refer to medication reconciliation sheet for a list of medications. The impression and plan of care has been dictated by Carol Lawrence, Nurse Practitioner as directed. Dr. Patrick MD I have performed a history and examination and MDM of this patient, discussed the same with the dictator, and agree with the dictator's assessment and plan as written ,documented as a scribe. Based on total visit time, I have performed more than 50% of the visit. Patient Condition at Discharge: Fair Plan - Discharge Summary Discharge Rx Participant: No New Discharge Prescriptions: New Amoxic-Pot Clav 875-125Mg [Augmentin 875-125] 1 tab PO Q12HR 4 Days #8 tab Nitroglycerin Sl Tabs [Nitrostat] 0.4 mg SUBLINGUAL Q5M PRN #20 tab PRN Reason: Chest Pain Acetaminophen Tab [Tylenol] 650 mg PO Q6HR PRN tab PRN Reason: Fever And/ Or Pain Tamsulosin [Flomax] 0.4 mg PO DAILY #30 cap Continue Losartan [Cozaar] 25 mg PO DAILY Ondansetron Odt [Zofran ODT] 4 mg PO Q6H PRN PRN Reason: Nausea Folic Acid 1 mg PO DAILY DULoxetine HCL [Cymbalta] 60 mg PO DAILY polyethylene glycoL 3350 [Miralax] 17 gm PO DAILY PRN PRN Reason: Constipation Sennosides/Docusate Sodium [Senna Plus 8.6-50 mg Tablet] 1 tab PO BID Apixaban [Eliquis] 5 mg PO BID methocarbamoL [Robaxin-750] 750 mg PO Q6H PRN PRN Reason: Muscle Spasm Ergocalciferol (Vitamin D2) [Drisdol (50,000 Iu)] 1,250 mcg PO TU Rosuvastatin [Crestor] 20 mg PO DAILY Metoprolol Succinate [Metoprolol Succinate ER] 25 mg PO DAILY Cyanocobalamin (Vitamin B-12) [Vitamin B-12] 1,000 mcg PO DAILY metFORMIN HCL 250 mg PO BID Discharge Medication List Apixaban [Eliquis] 5 mg PO BID 09/20/22 [History] Losartan [Cozaar] 25 mg PO DAILY 09/20/22 [History] Cyanocobalamin (Vitamin B-12) [Vitamin B-12] 1,000 mcg PO DAILY 09/29/24 [History] DULoxetine HCL [Cymbalta] 60 mg PO DAILY 09/29/24 [History] Ergocalciferol (Vitamin D2) [Drisdol (50,000 Iu)] 1,250 mcg PO TU 09/29/24 [History] Folic Acid 1 mg PO DAILY 09/29/24 [History] Metoprolol Succinate [Metoprolol Succinate ER] 25 mg PO DAILY 09/29/24 [History] Ondansetron Odt [Zofran ODT] 4 mg PO Q6H PRN 09/29/24 [History] Rosuvastatin [Crestor] 20 mg PO DAILY 09/29/24 [History] Sennosides/Docusate Sodium [Senna Plus 8.6-50 mg Tablet] 1 tab PO BID 09/29/24 [History] metFORMIN HCL 250 mg PO BID 09/29/24 [History] methocarbamoL [Robaxin-750] 750 mg PO Q6H PRN 09/29/24 [History] polyethylene glycoL 3350 [Miralax] 17 gm PO DAILY PRN 09/29/24 [History] Acetaminophen Tab [Tylenol] 650 mg PO Q6HR PRN tab 09/30/24 [Rx] Amoxic-Pot Clav 875-125Mg [Augmentin 875-125] 1 tab PO Q12HR 4 Days #8 tab 09/30/24 [Rx] Nitroglycerin Sl Tabs [Nitrostat] 0.4 mg SUBLINGUAL Q5M PRN #20 tab 09/30/24 [Rx] Tamsulosin [Flomax] 0.4 mg PO DAILY #30 cap 10/01/24 [Rx] Follow up Appointment(s)/Referral(s): Chris Melgoza MD [STAFF PHYSICIAN] - 10/07/24 8:00 am Nati Steen DO [REFERRING] - 1-2 days [facility], [NON-STAFF] - As Needed Ashish Alejandre MD [STAFF PHYSICIAN] - 1 Week (Please call office to schedule follow up.) Patient Instructions/Handouts: Laparoscopic Cholecystectomy (DC) Activity/Diet/Wound Care/Special Instructions: Activity limited until follow-up Follow-up with primary care provider on discharge Follow-up with surgery outpatient Follow-up cardiology outpatient Continue current diet slowly advance as tolerated If having increasing pain or chest pain, call 911 or visit your local ER Discharge home with Cummings catheter. Remove catheter in the evening October 06, 2024. Follow-up with Dr. Melgoza on October 07, 2024. Discharge Disposition: HOME WITH HOME HEALTH SERVICES
== END 2024-10-03 18:21 | disposition home health service (06) ==
LOC: EC 18:44 → 6NMEDSUR 20:56 → OBSVTOIN 20:56 → INTOOBSV 20:56 → 6NMEDSUR 21:41 → OBSVTOIN 10-03 07:18 → INTOOBSV 10-03 07:18 → UNDODISIN 10-03 18:21
PROVIDERS: ADMIT Hospitalist; ATTEND Hospitalist
PROC: 0FT44ZZ Resection of Gallbladder, Percutaneous Endoscopic Approach (ICD-10-PCS; principal; 2024-10-02 08:30)
DX: K80.12 Calculus of gallbladder with acute and chronic cholecystitis without obstruction (principal); R07.89 Other chest pain; R50.82 Postprocedural fever; R33.9 Retention of urine, unspecified; R79.89 Other specified abnormal findings of blood chemistry; R74.01 Elevation of levels of liver transaminase levels; R74.8 Abnormal levels of other serum enzymes; M19.90 Unspecified osteoarthritis, unspecified site; I47.10 Supraventricular tachycardia, unspecified; N20.0 Calculus of kidney; G89.29 Other chronic pain; M54.9 Dorsalgia, unspecified; G60.0 Hereditary motor and sensory neuropathy; M21.379 Foot drop, unspecified foot; F32.A Depression, unspecified; E66.01 Morbid (severe) obesity due to excess calories; Z68.38 Body mass index [BMI] 38.0-38.9, adult; Z79.01 Long term (current) use of anticoagulants; Z79.84 Long term (current) use of oral hypoglycemic drugs; Z79.899 Other long term (current) drug therapy; Z86.711 Personal history of pulmonary embolism; Z11.52 Encounter for screening for COVID-19; Z11.59 Encounter for screening for other viral diseases; Z98.890 Other specified postprocedural states
CPT/HCPCS: 99285; 36415; 93005 ×2; 97162; 85379; 88304; 83880; 80061; 80053 ×3; 82150; 83690; 83735; 84484 ×2; 85025 ×3; 85610; 85730; 81001; 87086; 87636; 71046; 76705; 71275; 47562; G0378 ×5; J2543 ×3; J2250; J0330; J2710; J0690; J2003; J0696; J3010; Q9967; J1596